=== PATIENT | male | born 1975 | race Caucasian/White ===

== ENCOUNTER 2020-11-10 20:04 | Emergency (ER) | payer MEDICAID, SELFPAY ==
--- NOTE | ~2020-11-10 | CT_ITS ---
EXAMINATION: CT ABDOMEN AND PELVIS WITHOUT CONTRAST CLINICAL INFORMATION: Lower abdominal pain. COMPARISON: CT abdomen 11/13/2017. TECHNIQUE: Multidetector volumetric imaging was performed from the superior aspect of the liver through the pubic symphysis. Sagittal and coronal reformatted images were obtained on the technologist's workstation. This CT examination was performed using dose optimization techniques as appropriate, variously including the following: *Automated exposure control. *Adjustment of mA and/or kV according to patient size (this includes techniques or standardized protocols for targeted exams where dose is matched to indication/reason for exam; i.e. extremities or head). *Use of iterative reconstruction technique. DLP: 600 mGy-cm FINDINGS: LUNG BASES: The visualized lung bases are unremarkable. LIVER, GALLBLADDER, AND BILIARY TREE: No focal lesion. No intrahepatic biliary duct dilatation. Gallbladder appears unremarkable. The CBD is not dilated. PANCREAS: Unremarkable. No inflammatory changes. SPLEEN: Unremarkable. ADRENAL GLANDS: Unremarkable. KIDNEYS AND URETERS: No renal or ureteral calculi. No hydronephrosis. No suspicious lesions. No perinephric stranding. BLADDER: Unremarkable. GASTROINTESTINAL TRACT: The small and large bowel are unremarkable. Small sigmoid diverticuli. No acute inflammatory changes. The appendix is unremarkable. No free fluid or free air. ABDOMINAL WALL: No significant hernia is appreciated. LYMPH NODES: No lymphadenopathy seen. VASCULAR: Unremarkable. PELVIC VISCERA: Unremarkable. OSSEOUS STRUCTURES: Multilevel spondylosis in the visualized thoracic and lumbar spine. The most prominent changes of clotrilw-ep-[id number] disc degeneration are seen at L4-L5, L5-S1, with vacuum phenomenon in the discs. CT/CT abdomen pelvis wo con IMPRESSION: 1. No acute findings identified in the abdomen or pelvis. 2. Lumbar spondylosis as above.
[2020-11-10 20:08] VITALS: BP 132/79; PULSE 111; RESP 18; TEMP 37.2; O2SAT 96; BMI 27.9
[2020-11-10 20:46] LABS: MANUAL DIFF FLAG NO
[2020-11-10 20:49] LABS: Basophils Percent Auto 0.1 % (0-2); Hematocrit 44.4 % (42-52); Hemoglobin 15.7 g/dl (14.0-18.0); Imm Gran Abs Auto 0.05 X10*3/uL (0.00-0.03); Imm Gran Pct Auto 0.3 % (0.0-0.4); Lymphocytes Percent Auto 13.7 % (20-40); Mean Corpuscular HGB Conc 35.4 g/dl (31.0-36.0); Mean Corpuscular Hemoglobin 32.4 pg (27.0-33.0); Mean Corpuscular Volume 91.7 fL (80-98); Mean Platelet Volume 10.6 fL (9.4-12.4); Monocytes Absolute Auto 1.2 X10*3/uL (0.1-1.2); Monocytes Percent Auto 8.1 % (2-11); Neutrophils Absolute Auto 11.6 X10*3/uL (2.0-8.3); Neutrophils Percent Auto 77.8 % (45-73); Platelet Count 257 X10*3/uL (160-400); Red Blood Count 4.84 X10*6/uL (4.60-5.80); Red Cell Distribution Width 12.2 % (11.0-16.0); White Blood Count 14.9 X10*3/uL (4.8-10.8)
--- NOTE | 2020-11-10 20:52 | ED_ITS ---
HPI - General Adult General Chief complaint: General Medical Stated complaint: Vomiting Time Seen by Provider: 11/10/20 20:50 Source: patient Mode of arrival: ambulatory Limitations: no limitations History of Present Illness HPI narrative: 45-year-old male walked in with vomiting since last night, vomiting has been constant since yesterday, last vomiting was 2 hours ago, patient now is complaining of sore throat, abdominal soreness from vomiting. Patient had similar presentation in the past. Related Data Allergies Allergy/AdvReac Type Severity Reaction Status Date / Time No Known Allergies Allergy Unverified 04/18/20 15:22 Review of Systems Review of Systems: All other systems are reviewed and are negative Constitutional: Reports as per HPI and Reports no additional constitutional complaints Eyes: Reports as per HPI and Reports no additional eye complaints Reports system reviewed and no additional complaints, except as documented Cardiovascular: Reports as per HPI and Reports no additional cardiovascular complaints Respiratory: Reports as per HPI and Reports no additional respiratory complaints Gastrointestinal: Reports as per HPI and Reports no additional gastrointestinal complaints Genitourinary: Reports no additional female genitourinary complaints Musculoskeletal: Reports no additional musculoskeletal complaints Skin/Breast: Reports system reviewed and no additional complaints, except as docu Psychiatric: Reports no additional psychiatric complaints Endocrine: Reports no additional endocrine complaints Hematologic/Lymphatic: Reports no additional hematologic/lymphatic complaints Allergic/Immunologic: Reports no additional allergic/immunologic complaints Reports system reviewed and no additional complaints, except as documented and Reports Abnormal speech present [facility] Past Medical History Medical History (Updated 11/10/20 @ 22:40 by Yashira Murcia MD) No active medical problems Social History Social History Advance Directives: No Advance Directives Information Provided: No Physical Exam Vital Signs: Vital Signs: Last Vital Signs Temp 99.0 F 11/10/20 20:08 Pulse 111 H 11/10/20 20:08 Resp 18 11/10/20 20:08 BP 132/79 11/10/20 20:08 Pulse Ox 96 11/10/20 20:08 Body Mass Index 27.9 Vital signs have been reviewed as appeared to be correct. Blood pressure normal. Heart rate normal. Respiration rate normal. Temperature normal. Oxygen saturation normal. Appearance: Alert. Oriented X3. No acute distress. Head: Normal external exam. Normocephalic. Atraumatic. No Dalton signs noted. No raccoon eyes noted Eyes: PERRLA. EOMI. Conjunctiva and sclera normal. Eyelids normal. ENT: TM's Normal. Pharynx normal. Uvula midline. Moist mucous membranes. No trismus noted. No drooling noted. No muffled voice noted. Neck: Normal inspection. Neck supple. FROM. No adenopathy. Thyroid Normal. No meningeal signs. No neck mass noted. CVS: Normal heart rate and rhythm. Heart sound normal. No murmurs noted. Pulses normal throughout. Respiratory: No respiratory distress. Painless inspiration. Breath sounds normal. No wheezes/rales/rhonchi noted. Chest nontender. No accessory muscle usage noted or decreased air movement noted. Abdomen: Soft, mild epigastric tenderness no rebound, no guarding.. Bowel sounds normal in all 4 quadrants. No distention noted. No organomegaly noted. No visible injury noted. Back: No CVA tenderness. Full range of motion noted. Skin: Skin warm and dry. Normal skin color. Normal skin turgor. No rashes/lesions/lacerations noted. Extremities: No lower extremity edema. Extremities exhibit normal range of motion. Extremities nontender. Neuro: Oriented X 3. No motor deficit. No sensory deficit. Reflexes normal. Course Course Course Narrative: 45-year-old male came in with vomiting x1 day complaining of abdominal pain. Patient now vital signs stable, no vomiting for the past 3 hours, able to tolerate p.o. intake in the emergency department. CT of the abdomen pelvis showed no acute pathology. Will discharge the patient with prescription of Zofran/Prilosec and follow up with PCP. Medical Decision Making Lab Data Lab results reviewed: Yes I reviewed the patient's lab results. Result diagrams: 11/10/20 20:40 11/10/20 20:40 Labs: Lab Results 11/10/20 11/10/20 11/10/20 Range/Units 20:40 20:40 20:40 WBC 14.9 H (4.8-10.8) X10*3/uL RBC 4.84 (4.60-5.80) X10*6/uL Hgb 15.7 (14.0-18.0) g/dl Hct 44.4 (42-52) % MCV 91.7 (80-98) fL MCH 32.4 (27.0-33.0) pg MCHC 35.4 (31.0-36.0) g/dl RDW 12.2 (11.0-16.0) % Plt Count 257 (160-400) X10*3/uL MPV 10.6 (9.4-12.4) fL Immature Gran % (Auto) 0.3 (0.0-0.4) % Neut % (Auto) 77.8 H (45-73) % Lymph % (Auto) 13.7 L (20-40) % [place] % (Auto) 8.1 (2-11) % Eos % (Auto) 0.0 (0-4) % Baso % (Auto) 0.1 (0-2) % Lymph # (Auto) 2.0 (1.2-4.9) X10*3/uL [place] # (Auto) 1.2 (0.1-1.2) X10*3/uL Eos # (Auto) 0.0 (0.0-0.4) X10*3/uL Baso # (Auto) 0.0 (0.0-0.2) X10*3/uL Abs Immat Gran (auto) 0.05 H (0.00-0.03) X10*3/uL Absolute Neuts (auto) 11.6 H (2.0-8.3) X10*3/uL Absolute Nucleated RBC 0.000 (0.0-0.012) X10*3/uL Nucleated RBC % (auto) 0.0 (0.0-0.2) /100WBC Hold Blue Top SEE NOTE Sodium 140 (135-145) mmol/L Potassium 3.2 L (3.3-5.1) mmol/L Chloride 95 L (96-108) mmol/L Carbon Dioxide 29 (22-29) mmol/L Anion Gap 19 (12-20) BUN 24 H (9-16) mg/dL Creatinine 1.15 (0.5-1.4) mg/dL Estim Creat Clear Calc 97.3 Estimated GFR > 60 Random Glucose 148 H (60-115) mg/dL Calcium 9.1 (8.4-10.2) mg/dL Total Bilirubin 0.8 (0.0-1.0) mg/dL AST 20 (5-37) U/L ALT 27 (0-40) U/L Alkaline Phosphatase 85 (39-117) U/L Total Protein 8.6 H (6.5-8.0) g/dL Albumin 5.0 (3.5-5.0) g/dL Imaging Data CT scan - abdomen: Radiologist's impression: 1. No acute findings identified in the abdomen or pelvis. 2. Lumbar spondylosis as above. Discharge Plan Discharge Clinical Impression: Abdominal pain Patient Disposition: Home, Self-Care Instructions: Abdominal Pain (ED) Referrals: Physician,None [Primary Care Provider] - 2 days
[2020-11-10 21:13] LABS: Alanine Aminotransferase 27 U/L (0-40); Alkaline Phosphatase 85 U/L (39-117); Anion Gap 19 (12-20); Aspartate Amino Transferase 20 U/L (5-37); Bilirubin Total 0.8 mg/dL (0.0-1.0); Blood Urea Nitrogen 24 mg/dL (9-16); Calcium 9.1 mg/dL (8.4-10.2); Carbon Dioxide 29 mmol/L (22-29); Chloride 95 mmol/L (96-108); Creatinine Clr Calc Pharmacy 97.3; Estimated Glomerular Filt Rate > 60; Glucose Random 148 mg/dL (60-115); Potassium 3.2 mmol/L (3.3-5.1); Sodium 140 mmol/L (135-145); Total Protein 8.6 g/dL (6.5-8.0)
[2020-11-10] MEDS: 0.9 % Sodium Chloride 1,000 ML 999 ML IVCONT (22:00)
[2020-11-10] MEDS: Potassium Chloride Packet 20 MEQ PACKET 40 MEQ PO (23:23)
[2020-11-10 23:24] VITALS: BP 135/79; PULSE 82; RESP 15; O2SAT 97
== END 2020-11-10 23:37 | disposition home or self-care (01) ==
PROVIDERS: Emergency Provider Emergency Medicine
DX: R10.13 Epigastric pain (principal); R11.10 Vomiting, unspecified; J02.9 Acute pharyngitis, unspecified; F12.90 Cannabis use, unspecified, uncomplicated
CPT/HCPCS: 36415; 74176; 80053; 85025; 96360; 99284

== ENCOUNTER 2020-11-12 11:38 | Emergency (ER) | payer MEDICAID, SELFPAY ==
--- NOTE | ~2020-11-12 | CT_ITS ---
EXAMINATION: CT ABDOMEN AND PELVIS WITH CONTRAST CLINICAL INFORMATION: 45-year-old male with diffuse abdominal pain COMPARISON: CT abdomen pelvis 11/10/2020 TECHNIQUE: Multidetector volumetric images were obtained from the superior aspect of the liver through the pubic symphysis following administration 85 mL of Omnipaque 350 intravenous contrast. Sagittal and coronal reformatted images were obtained on the technologist's workstation. Oral contrast: No This CT examination was performed using dose optimization techniques as appropriate, variously including the following: *Automated exposure control *Adjustment of mA and/or kV according to patient size (this includes techniques or standardized protocols for targeted exams where dose is matched to indication/reason for exam; i.e. extremities or head) *Use of iterative reconstruction technique DLP: 593 mGy-cm FINDINGS: Visualized lung bases are well aerated. The liver demonstrates normal size, contour and attenuation. Subcentimeter hypodensity of the right hepatic lobe is too small to accurately characterize. The gallbladder is normal in appearance. The pancreas, spleen and adrenal glands are unremarkable. Symmetrically enhancing kidneys. There is no hydronephrosis bilaterally. Normal caliber loops of small and large bowel. Normal appendix. Nonaneurysmal abdominal aorta. Retroaortic left renal vein. No retroperitoneal lymphadenopathy. The bladder is normal in appearance. The prostate gland is not enlarged. No gross free pelvic fluid. No inguinal lymphadenopathy. Mild diffuse degenerative changes of the spine. CT/CT abdomen pelvis w con IMPRESSION: Stable examination demonstrating no CT evidence for acute abnormality within the abdomen or pelvis.
--- NOTE | ~2020-11-12 | US_ITS ---
EXAMINATION: US ABDOMEN LIMITED CLINICAL INFORMATION: Right upper quadrant pain. Mildly elevated LFTs.. COMPARISON: CT abdomen pelvis earlier today and abdominal ultrasound 09/28/2015 TECHNIQUE: Real-time imaging of the right upper quadrant abdominal viscera. FINDINGS: PANCREAS: Visualized portions of pancreas are normal in appearance. LIVER: Normal. The liver is normal in size. The liver contour is normal. Parenchymal echogenicity is normal. No focal hepatic lesion. There is no intrahepatic biliary duct dilatation seen. GALLBLADDER: The gallbladder is physiologically distended without evidence of stones, sludge, polyps, wall thickening or pericholecystic fluid. Sonographic Antunez's sign is positive. COMMON BILE DUCT: Normal in caliber measuring 0.3 cm in diameter. RIGHT KIDNEY: Normal. No hydronephrosis. No renal calculi or focal parenchymal lesions. The kidney measures 11.9 cm in maximum dimension. FREE FLUID: None. US/US abdomen limited IMPRESSION: Sonographic imaging of the gallbladder is normal although the technologist does report a positive sonographic Antunez's sign. Clinical correlation recommended.
[2020-11-12 11:59] VITALS: BP 131/83; PULSE 80; RESP 16; TEMP 36.1; O2SAT 98; BMI 27.8
[2020-11-12 15:57] LABS: MANUAL DIFF FLAG NO
[2020-11-12 16:01] LABS: Basophils Percent Auto 0.2 % (0-2); Eosinophils Percent Auto 0.1 % (0-4); Hematocrit 46.7 % (42-52); Hemoglobin 15.9 g/dl (14.0-18.0); Imm Gran Abs Auto 0.04 X10*3/uL (0.00-0.03); Imm Gran Pct Auto 0.3 % (0.0-0.4); Lymphocytes Absolute Auto 3.3 X10*3/uL (1.2-4.9); Lymphocytes Percent Auto 25.2 % (20-40); Mean Corpuscular Hemoglobin 31.7 pg (27.0-33.0); Mean Platelet Volume 10.2 fL (9.4-12.4); Monocytes Absolute Auto 1.2 X10*3/uL (0.1-1.2); Neutrophils Absolute Auto 8.7 X10*3/uL (2.0-8.3); Neutrophils Percent Auto 65.2 % (45-73); Platelet Count 295 X10*3/uL (160-400); Red Blood Count 5.02 X10*6/uL (4.60-5.80); Red Cell Distribution Width 12.1 % (11.0-16.0); White Blood Count 13.2 X10*3/uL (4.8-10.8)
[2020-11-12 16:25] LABS: Anion Gap 14 (12-20); Blood Urea Nitrogen 21 mg/dL (9-16); Calcium 9.4 mg/dL (8.4-10.2); Carbon Dioxide 35 mmol/L (22-29); Chloride 93 mmol/L (96-108); Creatinine Clr Calc Pharmacy 96.6; Estimated Glomerular Filt Rate > 60; Glucose Random 116 mg/dL (60-115); Potassium 3.2 mmol/L (3.3-5.1); Sodium 139 mmol/L (135-145)
--- NOTE | 2020-11-12 16:53 | ED.ABDPAIN ---
HPI - Abdominal Pain General Chief Complaint: Abdominal Pain Stated Complaint: abd pain Time Seen by Provider: 11/12/20 16:41 Source: patient Mode of arrival: ambulatory Limitations: no limitations History of Present Illness HPI narrative: Patient comes emergency room complaining of diffuse abdominal pain. Patient states it has been 3-4 days. Patient states he has had chronic issues with abdominal pain in the past. Patient is supposed to follow up with Gastroenterology, however he was waiting for a referral from his PCP retired, now patient does have a PCP or referral to Gastroenterology. Patient states he was seen here on November 10 complaining of similar complaints. Patient states after he was discharged home, he was doing well, 2 days later he started vomiting again. Patient denies diarrhea, states he has not moved his bowels in 3 days. Patient denies flank pain, no urinary symptoms. Patient states that he uses marijuana almost every day, but stopped 3 days ago due to the vomiting and abdominal discomfort. Patient denies drinking alcohol MD elicited complaint: abdominal pain Related Data Previous Rx's Medication Instructions Recorded omeprazole magnesium [Prilosec OTC] 20 mg PO BID #30 tab 11/10/20 ondansetron HCl [Zofran] 4 mg PO Q8H PRN #7 tab 11/10/20 doxylamine succinate [Unisom 25 mg PO BEDTIME PRN #5 tab 11/12/20 (doxylamine)] hyoscyamine sulfate 0.25 mg PO QID PRN #10 tab 11/12/20 Allergies Allergy/AdvReac Type Severity Reaction Status Date / Time No Known Allergies Allergy Unverified 04/18/20 15:22 Review of Systems Review of Systems Constitutional : No Weight loss, No Fever, No Chills, No Night Sweats, No Fatigue, No Malaise ENT/Mouth : No Hearing loss, No Ear Pain, No Nasal Congestion, No Sinus Pain, No Hoarseness, No sore throat, No Rhinorrhea, No Swallowing Difficulty Eyes: No Eye Pain, No Swelling, No Redness, No Foreign Body, No Discharge, No Vision Changes Cardiovascular : No Chest Pain, No SOB, No Dyspnea on Exertion, No Orthopnea, No Edema, No Palpitations Respiratory : No Cough, No Sputum, No Wheezing, No Smoke Exposure, No Dyspnea Gastrointestinal : Complaining of nausea and vomiting, denies hematemesis, No Diarrhea, 3 days of Constipation, diffuse abdominal Pain, No Hematochezia, No Melena Genitourinary : no irregular bleeding, No Dysuria, No Urinary Frequency, No Hematuria, No Urinary Incontinence, No Urgency, No Flank Pain, No Urinary Flow Changes, No Hesitancy Musculoskeletal : No joint pain, No Myalgias, No Joint Swelling Skin : No Skin Lesions, No rash Neuro : No Weakness, No Numbness, No Paresthesias, No Loss of Consciousness, No Dizziness, No Headache Psych : No Anxiety/Panic, No Depression, No SI/HI/AH/VH, No Social Issues, Heme/Lymph: No Bruising, No Bleeding,No Lymphadenopathy Endocrine : No Polyuria, No Polydipsia, No Temperature Intolerance Physical Exam Vital Signs: Vital Signs: Last Vital Signs Temp 97 F 11/12/20 11:59 Pulse 80 11/12/20 11:59 Resp 16 11/12/20 11:59 BP 131/83 11/12/20 11:59 Pulse Ox 98 11/12/20 11:59 Body Mass Index 27.8 Course Course Course Narrative: I discussed the labs and imaging with Dr. Melgoza, at this time, acute cholecystitis is not suspected, hospitalization not recommended. Patient needs to follow-up with gastroenterology. MDM - Abdominal Pain Lab Data Result diagrams: 11/12/20 15:48 11/12/20 15:48 Labs: Lab Results 11/12/20 11/12/20 Range/Units 15:48 15:48 WBC 13.2 H (4.8-10.8) X10*3/uL RBC 5.02 (4.60-5.80) X10*6/uL Hgb 15.9 (14.0-18.0) g/dl Hct 46.7 (42-52) % MCV 93.0 (80-98) fL MCH 31.7 (27.0-33.0) pg MCHC 34.0 (31.0-36.0) g/dl RDW 12.1 (11.0-16.0) % Plt Count 295 (160-400) X10*3/uL MPV 10.2 (9.4-12.4) fL Immature Gran % (Auto) 0.3 (0.0-0.4) % Neut % (Auto) 65.2 (45-73) % Lymph % (Auto) 25.2 (20-40) % [place] % (Auto) 9.0 (2-11) % Eos % (Auto) 0.1 (0-4) % Baso % (Auto) 0.2 (0-2) % Lymph # (Auto) 3.3 (1.2-4.9) X10*3/uL [place] # (Auto) 1.2 (0.1-1.2) X10*3/uL Eos # (Auto) 0.0 (0.0-0.4) X10*3/uL Baso # (Auto) 0.0 (0.0-0.2) X10*3/uL Abs Immat Gran (auto) 0.04 H (0.00-0.03) X10*3/uL Absolute Neuts (auto) 8.7 H (2.0-8.3) X10*3/uL Absolute Nucleated RBC 0.000 (0.0-0.012) X10*3/uL Nucleated RBC % (auto) 0.0 (0.0-0.2) /100WBC Sodium 139 (135-145) mmol/L Potassium 3.2 L (3.3-5.1) mmol/L Chloride 93 L (96-108) mmol/L Carbon Dioxide 35 H (22-29) mmol/L Anion Gap 14 (12-20) BUN 21 H (9-16) mg/dL Creatinine 1.07 (0.5-1.4) mg/dL Estim Creat Clear Calc 96.6 Estimated GFR > 60 Random Glucose 116 H (60-115) mg/dL Calcium 9.4 (8.4-10.2) mg/dL Total Bilirubin 1.4 H (0.0-1.0) mg/dL Direct Bilirubin 0.4 (0.0-0.5) mg/dL AST 25 (5-37) U/L ALT 25 (0-40) U/L Alkaline Phosphatase 83 (39-117) U/L Total Protein 8.4 H (6.5-8.0) g/dL Albumin 5.0 (3.5-5.0) g/dL Lipase 50 (8-78) U/L Imaging Data Abdominal ultrasound: Radiologist's impression: US ABDOMEN LIMITED CLINICAL INFORMATION: Right upper quadrant pain. Mildly elevated LFTs.. COMPARISON: CT abdomen pelvis earlier today and abdominal ultrasound 09/28/2015 TECHNIQUE: Real-time imaging of the right upper quadrant abdominal viscera. FINDINGS: PANCREAS: Visualized portions of pancreas are normal in appearance. LIVER: Normal. The liver is normal in size. The liver contour is normal. Parenchymal echogenicity is normal. No focal hepatic lesion. There is no intrahepatic biliary duct dilatation seen. GALLBLADDER: The gallbladder is physiologically distended without evidence of stones, sludge, polyps, wall thickening or pericholecystic fluid. Sonographic Antunez's sign is positive. COMMON BILE DUCT: Normal in caliber measuring 0.3 cm in diameter. RIGHT KIDNEY: Normal. No hydronephrosis. No renal calculi or focal parenchymal lesions. The kidney measures 11.9 cm in maximum dimension. FREE FLUID: None. US/US abdomen limited IMPRESSION: Sonographic imaging of the gallbladder is normal although the technologist does report a positive sonographic Antunez's sign. Clinical correlation recommended. CT scan - abdomen: Radiologist's impression: [address] [id number] Scan ReportSigned Patient: Janet Torres#: [id number]: 1975Acct:[id number]/Sex: 45 / MADM Date: 11/12/20Loc: [address] Dr: Ordering Physician: ANTHONY MYRICK MD Date of Service: 11/12/20 Procedure(s): CT abdomen pelvis w con Accession Number(s): [id number] cc: ANTHONY MYRICK MD~ EXAMINATION: CT ABDOMEN AND PELVIS WITH CONTRAST CLINICAL INFORMATION: 45-year-old male with diffuse abdominal pain COMPARISON: CT abdomen pelvis 11/10/2020 TECHNIQUE: Multidetector volumetric images were obtained from the superior aspect of the liver through the pubic symphysis following administration 85 mL of Omnipaque 350 intravenous contrast. Sagittal and coronal reformatted images were obtained on the technologist's workstation. Oral contrast: No This CT examination was performed using dose optimization techniques as appropriate, variously including the following: *Automated exposure control *Adjustment of mA and/or kV according to patient size (this includes techniques or standardized protocols for targeted exams where dose is matched to indication/reason for exam; i.e. extremities or head) *Use of iterative reconstruction technique DLP: 593 mGy-cm FINDINGS: Visualized lung bases are well aerated. The liver demonstrates normal size, contour and attenuation. Subcentimeter hypodensity of the right hepatic lobe is too small to accurately characterize. The gallbladder is normal in appearance. The pancreas, spleen and adrenal glands are unremarkable. Symmetrically enhancing kidneys. There is no hydronephrosis bilaterally. Normal caliber loops of small and large bowel. Normal appendix. Nonaneurysmal abdominal aorta. Retroaortic left renal vein. No retroperitoneal lymphadenopathy. The bladder is normal in appearance. The prostate gland is not enlarged. No gross free pelvic fluid. No inguinal lymphadenopathy. Mild diffuse degenerative changes of the spine. CT/CT abdomen pelvis w con IMPRESSION: Stable examination demonstrating no CT evidence for acute abnormality within the abdomen or pelvis. Discharge Plan Discharge Clinical Impression: Abdominal pain Qualifiers: Abdominal location: generalized Qualified Code(s): R10.84 - Generalized abdominal pain Patient Disposition: Home, Self-Care Instructions: Abdominal Pain (ED) Additional Instructions: Please follow-up with your primary care physician tomorrow. If you have any worsening or new symptoms, please return to the emergency room or call 911 Prescriptions: New hyoscyamine sulfate 0.125 mg tablet 0.25 mg PO QID PRN (Reason: dyspepsia) Qty: 10 RF: 0 Unisom (doxylamine) 25 mg tablet 25 mg PO BEDTIME PRN (Reason: sleep) Qty: 5 RF: 0 No Action ondansetron HCl [Zofran] 4 mg tablet 4 mg PO Q8H PRN (Reason: nausea and vomiting) Qty: 7 RF: 0 omeprazole magnesium [Prilosec OTC] 20 mg tablet,delayed release (DR/EC) 20 mg PO BID Qty: 30 RF: 0 Referrals: Mic Garcia MD [Physician] - 2 days PMF Past Medical History Medical History (Updated 11/12/20 @ 20:21 by Anthony Myrick MD) No active medical problems Social History Social History Advance Directives: No Advance Directives Information Provided: No
[2020-11-12 17:25] LABS: Alanine Aminotransferase 25 U/L (0-40); Alkaline Phosphatase 83 U/L (39-117); Aspartate Amino Transferase 25 U/L (5-37); Bilirubin Direct 0.4 mg/dL (0.0-0.5); Bilirubin Total 1.4 mg/dL (0.0-1.0); Lipase 50 U/L (8-78); Total Protein 8.4 g/dL (6.5-8.0)
[2020-11-12] MEDS: iohexoL 350 MG/ML 100 ML INFUS..BTL IV (17:32)
[2020-11-12] MEDS: ondansetron HCL 4 MG/2 ML VIAL IVPUSH (17:46)
[2020-11-12] MEDS: Morphine Sulfate 2 MG/ML CARTRIDGE IVPUSH (17:46)
== END 2020-11-12 20:40 | disposition home or self-care (01) ==
PROVIDERS: Emergency Provider Emergency Medicine
DX: R10.84 Generalized abdominal pain (principal); F12.90 Cannabis use, unspecified, uncomplicated
CPT/HCPCS: 36415; 74177; 76705; 80048; 80076; 83690; 85025; 96374; 96375; 99283; 99284; J2270; J2405; Q9967

== ENCOUNTER 2020-11-16 16:38 | Emergency (ER) | payer MEDICAID, SELFPAY ==
[2020-11-16 16:42] VITALS: BP 144/86; PULSE 114; RESP 18; TEMP 37.2; O2SAT 100; BMI 27.8
--- NOTE | 2020-11-16 18:47 | ED.ABDPAIN ---
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 Pain does get worse after eating sometimes no acid reflux lately on Prilosec MD elicited complaint: abdominal pain Pertinent past history: gastritis Onset (ago): year(s) Pain Consistency: intermittent Location: epigastric Related Data Previous Rx's Medication Instructions Recorded omeprazole magnesium [Prilosec OTC] 20 mg PO BID #30 tab 11/10/20 ondansetron HCl [Zofran] 4 mg PO Q8H PRN #7 tab 11/10/20 doxylamine succinate [Unisom 25 mg PO BEDTIME PRN #5 tab 11/12/20 (doxylamine)] hyoscyamine sulfate 0.25 mg PO QID PRN #10 tab 11/12/20 Allergies Allergy/AdvReac Type Severity Reaction Status Date / Time No Known Allergies Allergy Unverified 04/18/20 15:22 Review of Systems Review of Systems Constitutional : No Weight loss, No Fever, No Chills ENT/Mouth : No sore throat, No Rhinorrhea Eyes: No Eye Pain, No Swelling Cardiovascular : No Chest Pain, no palpitations Respiratory : No Cough, No Sputum, no shortness of breath Gastrointestinal : + Nausea, + Vomiting, No Diarrhea, ++abdominal Pain, no black stools Genitourinary : No Dysuria, No Urinary Frequency Musculoskeletal : No joint pain, No Myalgias, No Joint Swelling Skin : No Skin Lesions, No rash Neuro : No Weakness, No Numbness, No Dizziness, No Headache Psych : No Anxiety/Panic, No Depression Heme/Lymph: No Bruising, No Lymphadenopathy Endocrine : No Polyuria, No Polydipsia All other systems reviewed and are negative Physical Exam Vital Signs: Vital Signs: Last Vital Signs Temp 98.9 F 11/16/20 16:42 Pulse 114 H 11/16/20 16:42 Resp 18 11/16/20 16:42 BP 144/86 H 11/16/20 16:42 Pulse Ox 100 11/16/20 16:42 Body Mass Index 27.8 Appearance: Alert. Oriented X3. No acute distress. Eyes: Pupils equal, round and reactive to light. ENT: Pharynx normal. Neck: Normal inspection. Neck supple. CVS: Normal heart rate and rhythm. Pulses normal. Respiratory: No respiratory distress. Breath sounds normal. Abdomen: Soft , epigastric tenderness + no rebound tenderness or guarding Bowel sounds are present, no mass palpable, no CVA tenderness Skin: Skin warm and dry. Normal skin color. Normal skin turgor. Extremities: No lower extremity edema. Neuro: Oriented X 3. No motor deficit. No sensory deficit. MDM - Abdominal Pain MDM Narrative Medical decision making narrative: Patient with upper abdominal pain with history of cannabis use which is going on for years patient feels better after a hot shower likely cannabis induced abdominal pain Discharge Plan Discharge Prescriptions: No Action hyoscyamine sulfate 0.125 mg tablet 0.25 mg PO QID PRN (Reason: dyspepsia) Qty: 10 RF: 0 Unisom (doxylamine) 25 mg tablet 25 mg PO BEDTIME PRN (Reason: sleep) Qty: 5 RF: 0 ondansetron HCl [Zofran] 4 mg tablet 4 mg PO Q8H PRN (Reason: nausea and vomiting) Qty: 7 RF: 0 omeprazole magnesium [Prilosec OTC] 20 mg tablet,delayed release (DR/EC) 20 mg PO BID Qty: 30 RF: 0 PMFSH Past Medical History Medical History No active medical problems Social History Social History Advance Directives: No Advance Directives Information Provided: No
[2020-11-16] MEDS: LORazepam 1 MG TABLET 2 MG PO (19:14)
[2020-11-16] MEDS: Dicyclomine HCl 10 MG CAPSULE 20 MG PO (19:14)
== END 2020-11-16 20:22 | disposition home or self-care (01) ==
PROVIDERS: Emergency Provider Internal Medicine; PCP Family Medicine
DX: K29.50 Unspecified chronic gastritis without bleeding (principal); F12.188 Cannabis abuse with other cannabis-induced disorder
CPT/HCPCS: 99283; 99284

== ENCOUNTER → 2020-12-10 13:11 | Outpatient (BNVA) | payer MEDICAID, SELFPAY | PROVIDERS: Visit Provider Physician Assistant ==

== ENCOUNTER 2020-12-26 07:07 | Day surgery (SDC) | payer MEDICAID, SELFPAY ==
--- NOTE | 2020-12-24 13:15 | HO.ANESPROP2 ---
Documented by User: Shyann Ortega 12/24/20 13:15 HPI - Anesthesia Eval Consult details Narrative: 45yo M for Upper Endoscopy PMFSH Active Problems Active Problems: All Active Problems (Updated 12/18/20 @ 13:01 by Allie Santiago PA-C) Cannabis abuse (Acute) Nausea & vomiting (Acute) Past Medical History Medical History Cannabis abuse Nausea & vomiting No active medical problems Social History Social History Household Members: Family Alcohol intake: never Substance Use Type: Marijuana Advance Directives: No Advance Directives Information Provided: Yes Current occupational status: unemployed Meds Allergies Allergy/AdvReac Type Severity Reaction Status Date / Time No Known Allergies Allergy Verified 12/26/20 07:49 Home Medications Medication Instructions Recorded Confirmed Last Taken Type ondansetron HCl 1 tab PO Q8H PRN 12/23/20 12/23/20 Unknown History Exam Exam Date and Time: December 24, 20201314 Assessment and Plan Assessment Anesthesia Assessment: Chart Reviewed Documented by User: Angelika Porter 12/26/20 07:55 PMFSH Past Medical History Medical History Cannabis abuse Nausea & vomiting No active medical problems Social History Social History Household Members: Family Alcohol intake: never Substance Use Type: Marijuana Advance Directives: No Advance Directives Information Provided: Yes Current occupational status: unemployed Meds Allergies Allergy/AdvReac Type Severity Reaction Status Date / Time No Known Allergies Allergy Verified 12/26/20 07:49 Home Medications Medication Instructions Recorded Confirmed Last Taken Type ondansetron HCl 1 tab PO Q8H PRN 12/23/20 12/23/20 Unknown History Exam Airway Mallampati Class: II TM Dist: >3cm Neck ROM: Full
--- NOTE | 2020-12-26 07:48 | P.OP_ITS ---
Operative Note Operative Note Date of Service: 12/26/20 Narrative: Pre-op diagnosis: Abdominal pain, nausea and vomiting Post-op diagnosis: other (GERD, gastritis, duodenitis, duodenal nodules) Procedure: FLEXIBLE TRANSORAL UPPER GASTROINTESTINAL ENDOSCOPY WITH BIOPSIES Consent: Indications for the procedure and potential complications of bleeding, perforation, reaction to medications and missed diagnosis were discussed with the patient and informed consent was obtained. Instrument: Olympus GIF H 190 mid size upper endoscope Monitoring: Vital signs and clinical assessment, continuous EKG monitoring, Pulse oximetry, Carbon Dioxide monitoring and blood pressure monitoring were done throughout the procedure. Procedure: The patient was placed in the left lateral decubitis position and pre-procedure medications were administered and a bite block was placed. The endoscope was inserted into the mouth and advanced under direct vision to the third part of duodenum. A careful inspection was made as the upper endoscope was withdrawn including a retroflexed examination of the proximal stomach; Findings and interventions are described below. Findings: Larynx: Normal Esophagus: GE junction at 40 cms. Irregular Z line with 1 cms tongue of suspected Ravi's - biopsied. Stomach: Mild gastric antral erythema. Biopsies were obtained. Grade 2 flap valve on retroflexed examination of the cardia. Duodenum: Duodenitis in the bulb with multiple 8-10 mm benign appearing nodules - biopsied. Normal descending duodenum - biopsied to check for celiac sprue. Intervention: Biopsies as noted above Impression and Post Procedure Diagnosis: Endoscopy Findings: ESOPHAGUS: Irregular Z line with 1 cms tongue of suspected Ravi's - biopsied. STOMACH: Gastritis. DUODENUM: Nodular duodenitis in the bulb. Plan: Await pathology results Patient to schedule a FU appointment in the GI Clinic with JENNIFFER Perez. Above findings were reviewed with the patient and Duodenitis and Gastritis handouts were given in the discharge area Surgeon: Lj Thayer MD Anesthesia: MAC (Va Trujillo CRNA) Was an [employer] used for this Procedure?: Yes [employer]: Rajinder Garcia Estimated blood loss (mL): 0 Pathology: other (A- SMALL BOWEL BXS R/O CELIAC SPRU B- DUODENAL NODULE C- GASTRIC ANTRUM BXS R/O H. PYLORI D- DISTAL ESOPHAGUS BXS R/O RAVI'S) Condition: stable Disposition: PACU
--- NOTE | 2020-12-26 07:49 | MHC.SHP ---
Pre-Procedural Eval Section A The patient is an INPATIENT: No Changes since office visit: Yes Patient answered all questions; No Cold of Flu in the past 2 weeks, No New Medical Problems and No Changes in Medication The History & Physical has been completed within 30 days and I have reviewed it.: Yes Section B Chief Complaint: nausea Allergies: Allergies Allergy/AdvReac Type Severity Reaction Status Date / Time No Known Allergies Allergy Unverified 12/23/20 13:42 Exam Surgical H&P Exam: Normal: Heart, Normal: Lungs, Normal: Extremities and Normal: Abdomen Plan Diagnosis/Plan: Unchanged I have reviewed the history and physical and performed a pertinent physical examination on my patient. No changes have occurred unless specified.
[2020-12-26 07:50] VITALS: BP 104/55; PULSE 87; RESP 16; TEMP 36.2; O2SAT 97; BMI 27.8
[2020-12-26] MEDS: Lactated Ringers 1,000 ML 100 ML IVCONT (07:58)
[2020-12-26 08:45] VITALS: BP 84/41; PULSE 70; RESP 16; TEMP 37.1; O2SAT 96
[2020-12-26 09:00] VITALS: BP 87/48; PULSE 84; RESP 16; O2SAT 95
[2020-12-26 09:15] VITALS: BP 112/71; PULSE 77; RESP 16; TEMP 37.1; O2SAT 95
== END 2020-12-26 10:00 | disposition home or self-care (01) ==
PROVIDERS: PCP Family Medicine; Visit Provider Internal Medicine Gastroenterology
PROC: 0DJ08ZZ Inspection of Upper Intestinal Tract, Via Natural or Artificial Opening Endoscopic (ICD-10-PCS; CPT 43235; principal; 2020-12-26 08:10)
DX: K29.70 Gastritis, unspecified, without bleeding (principal); K29.80 Duodenitis without bleeding; K21.9 Gastro-esophageal reflux disease without esophagitis; K31.7 Polyp of stomach and duodenum; F12.10 Cannabis abuse, uncomplicated; Z79.899 Other long term (current) drug therapy; Z87.891 Personal history of nicotine dependence
CPT/HCPCS: 43239; 88305; 88342; J3010

== ENCOUNTER → 2021-01-28 08:32 | Outpatient (BNVA) | payer MEDICAID, SELFPAY | PROVIDERS: PCP Family Medicine; Visit Provider Physician Assistant ==

== ENCOUNTER 2021-01-31 20:33 | Emergency (ER) | payer MEDICAID, SELFPAY | END 2021-01-31 22:09 | disposition left against medical advice (07) | PROVIDERS: Emergency Provider Emergency Medicine | DX: R10.9 Unspecified abdominal pain (principal); R11.2 Nausea with vomiting, unspecified ==

== ENCOUNTER 2021-03-06 10:29 | Outpatient (REF) | payer MEDICAID, SELFPAY ==
--- NOTE | 2021-03-06 10:30 | EMG_ITS ---
Right median and ulnar motor and sensory studies were performed. Right radial sensory study was performed and paraspinal muscles were tested. IMPRESSION: 1. [id number] right median neuropathy across carpal tunnel. 2. Mild right ulnar neuropathy across cubital tunnel. MD FABRICIO Pimentel/LAURIE / [phone]
== END 2021-03-06 10:30 | disposition home or self-care (01) ==
LOC: HO.NEURO 10:29
PROVIDERS: PCP Family Medicine; Visit Provider Family Medicine
DX: G62.9 Polyneuropathy, unspecified (principal)
CPT/HCPCS: 95886; 95909

== ENCOUNTER → 2021-04-29 08:23 | Outpatient (BNVA) | payer MEDICAID, SELFPAY | PROVIDERS: PCP Family Medicine; Referring Provider Family Medicine; Visit Provider Physician Assistant ==

== ENCOUNTER 2023-07-01 19:16 | Inpatient (IN) | payer MEDICAID, SELFPAY ==
[2023-07-01 19:23] VITALS: BP 114/70; PULSE 121; RESP 22; TEMP 36.9; O2SAT 98; BMI 27.8
--- NOTE | 2023-07-01 19:25 | ED_ITS ---
[facility] - General Adult General Chief complaint: Nausea/Vomiting/Diarrhea Stated complaint: vomiting, cramping, dizzy Time Seen by Provider: 07/01/23 20:59 Source: patient Mode of arrival: ambulatory History of Present Illness HPI narrative: 47-year-old male without significant past medical history other than use of cannabis and presents with persistent nausea and vomiting since last and now states that he is having significant muscle cramping and is experiencing significant epigastric discomfort. He otherwise denies any diarrhea/fevers/chills. Related Data Home Medications Medication Instructions Recorded Confirmed ondansetron HCl 4 mg tablet 1 tab PO Q8H PRN nausea/vomiting 12/23/20 01/28/21 trazodone 100 mg tablet 100 mg PO BEDTIME PRN 01/28/21 01/28/21 Previous Rx's Medication Instructions Recorded omeprazole magnesium 20 mg 20 mg PO BID #30 tabs 11/10/20 tablet,delayed release (Prilosec OTC) dicyclomine 20 mg tablet 20 mg PO QID PRN abdominal pain 11/16/20 #20 tabs sucralfate 1 gram tablet 1 g PO TID #90 tabs 11/16/20 Allergies Allergy/AdvReac Type Severity Reaction Status Date / Time No Known Allergies Allergy Verified 12/26/20 07:49 Review of Systems 2 Review of Systems: Pertinent positives and negatives as stated in [facility] Past Medical History Source: nursing notes reviewed Medical History Cannabis abuse Nausea & vomiting No active medical problems Social History Social History Household Members: Family Alcohol intake: never Patient Tobacco Use Status: Former Tobacco user Tobacco use type: Cigarette Smoked in Last 30 Days: No Use of substances other than those prescribed or required for medical reasons: Yes Substance Use Type: Marijuana Substance Use Frequency: Daily Advance Directives: No Advance Directives Information Provided: No Current occupational status: unemployed Physical Exam ED Vital Signs: Vital Signs - 24 hr 07/01/23 19:23 07/01/23 21:34 07/01/23 21:39 Temperature 98.4 F Pulse Rate 121 H 117 H Respiratory Rate 22 H 19 Blood Pressure 114/70 107/64 Pulse Oximetry 98 100 Oxygen Delivery Method Room Air BMI result Body Mass Index 27.8 VITAL SIGNS: Reviewed. GENERAL: Well developed, well nourished, in no acute distress. HEAD: Normocephalic/atraumatic EYES: PERRLA, EOMI EARS: Ext canals without abnormality NOSE: Nares patent bilateral OROPHARYNX: no oral lesions noted, posterior pharynx clear NECK: Supple, no adenopathy LUNGS: Normal breath sounds. No adventitious sounds or accessory muscle use. SpO2<98> CARDIOVASCULAR: Regular rate and rhythm without noted murmurs ABDOMEN: Soft, diffusely tender on minimal palpation, non-distended with bowel sounds. MUSCULOSKELETAL: No tenderness, deformities, or effusions noted on gross inspection. EXTREMITIES: No cyanosis, clubbing or edema. SKIN: Inspection of the skin reveals no rashes NEUROLOGIC: Alert and oriented x 4. Strength and sensation to light touch were grossly intact x 4. Course Course Course Narrative: This is a rapid medical exam: Additional HPI, ROS, PE not included below will be deferred to primary provider. Patient is a 47-year-old male with history of cannabis use presenting to the ED with complaint of nausea and vomiting for one week. Denies diarrhea. Complains of abdominal cramping. Denies past medical history. Also reports several episodes of syncope since wednesday. Denies head strikes or loss of consciousness. Not anticoagulated. Reports chest pain earlier, denies pain now. Complains of pain to both sides of abdomen. States has not been able to tolerate any PO fluids. Plan: EKG, labs, UA Medications Administered Generic Name Dose Route Start Last Admin Trade Name Freq PRN Reason Stop Dose Admin Potassium Chloride 10 meq in 100 mls @ 100 mls/hr 07/01/23 21:15 07/01/23 23:50 Potassium Chloride/H20 IV 07/02/23 01:14 100 mls/hr Q1H ELDON Administration Discontinued Medications Generic Name Dose Route Start Last Admin Trade Name Freq PRN Reason Stop Dose Admin Al Hydroxide/Mg Hydroxide 30 ml 07/01/23 22:54 07/01/23 22:59 Magnesium Hydrox/Alum Hydrox 30 Ml Oral.Susp PO 07/01/23 22:55 30 ml ONCE ONE Administration Diphenhydramine HCl 25 mg 07/01/23 21:30 07/01/23 21:40 Diphenhydramine Hcl 50 Mg/Ml Vial IVPUSH 07/01/23 21:31 25 mg ONCE ONE Administration Famotidine 20 mg 07/01/23 21:30 07/01/23 21:40 Famotidine/Pf 20 Mg/2 Ml Vial IVPUSH 07/01/23 21:31 20 mg ONCE ONE Administration Sodium Chloride 1,000 mls @ 999 mls/hr 07/01/23 21:15 07/01/23 23:48 Ns IV 07/01/23 22:15 Infused .Q1H1M ELDON Infusion Lidocaine HCl 10 ml 07/01/23 22:54 07/01/23 22:59 Lidocaine Hcl Viscous 2 % 15 Ml Solution MUCOUS MEM 07/01/23 22:55 10 ml ONCE ONE Administration Sucralfate 1 gm 07/01/23 22:54 07/01/23 22:59 Sucralfate Oral Suspension 1 Gm/10 Ml Oral.Susp PO 07/01/23 22:55 1 gm ONCE ONE Administration Medical Decision Making Medical Decision Making MDM Narrative: 47-year-old male with history and clinical presentation, DDX: Hyperemesis cannabis, less likely felt to be food poisoning or gastroenteritis. INTERVENTION: IV fluids, anti medics, potassium replacement I reviewed all investigations and hematologic indices are consistent with a stress leukocytosis and likely combined with hypovolemia with subsequent hemoconcentration as there is an elevation of hemoglobin concentration, no thrombocytopenia and no left shift. Chemistry indices are significantly deranged with sodium/chloride significant for severe dehydration, patient is noted to be hypokalemic with magnesium slightly elevated. Patient also has an SANAZ likely secondary to rhabdomyolysis and severe dehydration. Elevated T bili again likely secondary to severe dehydration/hypovolemia and stress of nausea and vomiting. Urinalysis negative for UTI or hematuria. Viral testing negative for COVID-19/influenza. I have no concern for infection, patient is afebrile and all findings are consistent with underlying nausea/vomiting with electrolytes derangements in the presence of SANAZ and rhabdomy lysis. 0013: I discussed case with inpatient hospitalist who accepts admission. Differential Diagnosis Differential Diagnoses: The differential diagnosis associated with the presentation includes Please see the discussion above Admission/Observation Consideration of admission/observation: Escalation of care including admission/observation considered Please see the discussion above Consult Healthcare Provider Management of the patient was discussed with: Hospitalist Please see the discussion above Lab Data [facility] Lab Attestation statement: I reviewed the patient's lab results. Please see the discussion above 07/01/23 19:53 07/01/23 19:53 Labs: Lab Results 07/01/23 07/01/23 Range/Units 19:53 22:24 WBC 18.2 H (4.8-10.8) X10*3/uL RBC 5.81 H (4.60-5.80) X10*6/uL Hgb 18.7 H (14.0-18.0) g/dl Hct 50.4 (42.0-52.0) % MCV 86.7 (80.0-98.0) fL MCH 32.2 (27.0-33.0) pg MCHC 37.1 H (31.0-36.0) g/dl RDW 11.5 (11.0-16.0) % Plt Count 318 (160-400) X10*3/uL MPV 10.9 (9.4-12.4) fL Immature Gran % (Auto) 0.5 H (0.0-0.4) % Neut % (Auto) 69.9 (45-73) % Lymph % (Auto) 16.9 L (20-40) % [place] % (Auto) 12.4 H (2-11) % Eos % (Auto) 0.1 (0-4) % Baso % (Auto) 0.2 (0-2) % Lymph # (Auto) 3.1 (1.2-4.9) X10*3/uL [place] # (Auto) 2.3 H (0.1-1.2) X10*3/uL Eos # (Auto) 0.0 (0.0-0.4) X10*3/uL Baso # (Auto) 0.0 (0.0-0.2) X10*3/uL Abs Immat Gran (auto) 0.09 H (0.00-0.03) X10*3/uL Absolute Neuts (auto) 12.7 H (2.0-8.3) x10*3/uL Absolute Nucleated RBC 0.000 (0.0-0.012) X10*3/uL Nucleated RBC % (auto) 0.0 (0.0-0.2) /100WBC Smear Tech's Comments VERIFIED Sodium 125 L (135-145) mmol/L Potassium 2.8 L (3.3-5.1) mmol/L Chloride 71 L D (96-108) mmol/L Carbon Dioxide 33 H (22-29) mmol/L Anion Gap 24 H (12-20) BUN 81 H (9-16) mg/dL Creatinine 1.86 H (0.5-1.4) mg/dL Estim Creat Clear Calc 54.4 Estimated GFR 39 Random Glucose 149 H (60-115) mg/dL Calcium 10.2 D (8.4-10.2) mg/dL Magnesium 3.2 H (1.6-2.6) mg/dL Total Bilirubin 2.0 H (0.0-1.0) mg/dL AST 35 (5-37) U/L ALT 20 (0-40) U/L Alkaline Phosphatase 87 (39-117) U/L Total Creatine Kinase 1189 H (38-174) U/L Troponin I High Sens 10.8 (<3.5-35.0) ng/L Total Protein 9.2 H (6.5-8.0) g/dL Albumin 5.2 H (3.5-5.0) g/dL Urine Color Dark Yellow Urine Appearance Cloudy Urine pH 5.5 (5.0-9.0) Ur Specific [place] 1.020 (1.005-1.025) Urine Protein 100 (2+) H (Neg-Trace) mg/dL Urine Glucose (UA) Negative (Negative) mg/dL Urine Ketones 15 (Negative) mg/dL Urine Blood Moderate (2+) H (Negative) Urine Nitrite Negative (Negative) Ur Leukocyte Esterase Negative (Negative) Urine RBC 0-2 (0-2) /HPF Urine WBC 0-5 (0-5) /HPF Ur Squamous Epith Cells 6-10 (0-2) /HPF Urine Bacteria None Seen (None Seen) Hyaline Casts >20 (0-2) /LPF COVID-19 (BERTRAM) Negative (Negative) COVID-19 Clin Com See Note Influenza Type A (SIDNEY) Negative (Negative) Influenza Type B (SIDNEY) Negative (Negative) Influenza A & B Note See Note Independent Interpretation I performed an independent interpretation of an: EKG Interpretation: Sinus tachycardia, HR-123, no STEMI, HI/QRS are within normal limits, QTC is prolonged. External Record Review External record reviewed: Outpatient record, Prior outpatient labs and Prior outpatient radiology Critical Care Time Critical Care Time Critical Care Time: Yes Total Critical Care Time: 45 Attestation: I personally attest to this time spent taking care of the patient. Discharge Plan Discharge Clinical Impression: Cannabis hyperemesis syndrome concurrent with and due to cannabis abuse, Dehydration, SANAZ (acute kidney injury), Hypokalemia Patient Disposition: Admitted As Inpatient
--- NOTE | 2023-07-01 19:27 | ECG_ITS ---
Test Reason : CHEST PAIN Blood Pressure : / mmHG Vent. Rate : 123 BPM Atrial Rate : 123 BPM P-R Int : 118 ms QRS Dur : 094 ms QT Int : 354 ms P-R-T Axes : 077 060 -37 degrees QTc Int : 506 ms Sinus tachycardia Right atrial enlargement Left ventricular hypertrophy with repolarization abnormality ( Sokolow-Queen ) Abnormal ECG When compared with ECG of 04-SEP-2015 10:20, No significant change was found Referred By: Radha Meza Electronically Signed By:BABAR BURK MD
[2023-07-01 20:02] LABS: Basophils Percent Auto 0.2 % (0-2); Eosinophils Percent Auto 0.1 % (0-4); Hematocrit 50.4 % (42.0-52.0); Hemoglobin 18.7 g/dl (14.0-18.0); Imm Gran Abs Auto 0.09 X10*3/uL (0.00-0.03); Imm Gran Pct Auto 0.5 % (0.0-0.4); Lymphocytes Absolute Auto 3.1 X10*3/uL (1.2-4.9); Lymphocytes Percent Auto 16.9 % (20-40); MANUAL DIFF FLAG SCAN; Mean Corpuscular HGB Conc 37.1 g/dl (31.0-36.0); Mean Corpuscular Hemoglobin 32.2 pg (27.0-33.0); Mean Corpuscular Volume 86.7 fL (80.0-98.0); Mean Platelet Volume 10.9 fL (9.4-12.4); Monocytes Absolute Auto 2.3 X10*3/uL (0.1-1.2); Monocytes Percent Auto 12.4 % (2-11); Neutrophils Absolute Auto 12.7 x10*3/uL (2.0-8.3); Neutrophils Percent Auto 69.9 % (45-73); Platelet Count 318 X10*3/uL (160-400); Red Blood Count 5.81 X10*6/uL (4.60-5.80); Red Cell Distribution Width 11.5 % (11.0-16.0); SCAN SMEAR FLAG 1; White Blood Count 18.2 X10*3/uL (4.8-10.8)
[2023-07-01 20:20] LABS: Alanine Aminotransferase 20 U/L (0-40); Albumin Level 5.2 g/dL (3.5-5.0); Alkaline Phosphatase 87 U/L (39-117); Anion Gap 24 (12-20); Aspartate Amino Transferase 35 U/L (5-37); Blood Urea Nitrogen 81 mg/dL (9-16); Calcium 10.2 mg/dL (8.4-10.2); Carbon Dioxide 33 mmol/L (22-29); Chloride 71 mmol/L (96-108); Creatinine Clr Calc Pharmacy 54.4; Estimated Glomerular Filt Rate 39; Glucose Random 149 mg/dL (60-115); Magnesium 3.2 mg/dL (1.6-2.6); Potassium 2.8 mmol/L (3.3-5.1); Sodium 125 mmol/L (135-145); Total Protein 9.2 g/dL (6.5-8.0)
[2023-07-01 20:23] LABS: SLIDE REVIEW VERIFIED
[2023-07-01 20:30] LABS: COVID-19 Test Negative (Negative); IDNOW Serial# 9DB6401D; IDNOW Serial# BCCEAD1C; Influenza A Negative (Negative); Influenza B2 Negative (Negative)
[2023-07-01 20:44] LABS: Troponin-I High Sensitivity 10.8 ng/L (<3.5-35.0)
[2023-07-01] MEDS: 0.9 % Sodium Chloride 1,000 ML 999 ML IV (21:33)
[2023-07-01 21:34] VITALS: PULSE 117; RESP 19; O2SAT 100
[2023-07-01 21:39] VITALS: BP 107/64
[2023-07-01] MEDS: Potassium Chloride/H20 10 MEQ/100 ML PIGGYBACK 100 MEQ IV ×2 (21:40→23:50)
[2023-07-01] MEDS: Famotidine/PF 20 MG/2 ML VIAL IVPUSH (21:40)
[2023-07-01] MEDS: diphenhydrAMINE HCL 50 MG/ML VIAL 25 MG IVPUSH (21:40)
[2023-07-01 22:35] LABS: Appearance Urine Cloudy; Color Urine Dark Yellow; Glucose Urine UA Negative (Negative); Leukocyte Esterase Urine Negative (Negative); Nitrite Urine Negative (Negative); PH 5.5 (5.0-9.0); UMIC TRIGGER UACC YES; Urine Blood Moderate (2+) (Negative); Urine Ketones 15 mg/dL (Negative); Urine Protein 100 (2+) mg/dL (Neg-Trace)
[2023-07-01 22:42] LABS: Bacteria Urine None Seen (None Seen); Hyaline Casts Urine >20 /LPF (0-2); RBC Urine 0-2 /HPF (0-2); WBC Urine 0-5 /HPF (0-5)
[2023-07-01] MEDS: Sucralfate Oral Suspension 1 GM/10 ML ORAL.SUSP PO (22:59)
[2023-07-01] MEDS: Lidocaine HCl Viscous 2 % 15 ML SOLUTION 10 ML MUCOUS MEM (22:59)
[2023-07-01] MEDS: Magnesium Hydrox/Alum Hydrox 30 ML ORAL.SUSP PO (22:59)
--- NOTE | 2023-07-01 23:17 | PC.NURSE ---
potassium admin delay d/t pump issue, 1st bag potassium still running
[2023-07-02] MEDS: 0.9 % Sodium Chloride 1,000 ML 999 ML IV (00:49)
[2023-07-02] MEDS: Potassium Chloride/H20 10 MEQ/100 ML PIGGYBACK 100 MEQ IV ×2 (00:49→03:17)
[2023-07-02 00:58] LABS: Procalcitonin 0.21 ng/mL
[2023-07-02 01:05] LABS: Amphetamine Screen Urine Not Detected (Not Detect); Barbiturates, Urine Not Detected (Not Detect); Benzodiazepines Screen Urine Not Detected (Not Detect); Cannabinoid Screen Urine POSITIVE (Not Detect); Cocaine Screen Urine Not Detected (Not Detect); Fentanyl, urine Not Detected (Not Detect); Opiate Screen Urine Not Detected (Not Detect); Phencyclidine Screen Urine Not Detected (Not Detect)
--- NOTE | 2023-07-02 01:29 | P.HPHOSP_ITS ---
History of Present Illness Date of Service: 07/02/23 Chief Complaint: lethargy, vomiting 47M PMH cannibas hyperemesis, insomnia, complaining of 1 week nausea and vomiting, inabilityu to tolerate po. epigastric discomfort, muscle cramping, denies diarrhea, fever, chills. has had multiple similar episdoes complicated by severe SANAZ. in ED noted to have na -125, k -2.8, chloride - 71, cr 1.86. Review of Systems 2 Review of Systems: Yes all other systems are reviewed and are negative [facility] Medical History Cannabis abuse Nausea & vomiting No active medical problems Social History Household Members: Family Alcohol intake: never Patient Tobacco Use Status: Former Tobacco user Tobacco use type: Cigarette Smoked in Last 30 Days: No Use of substances other than those prescribed or required for medical reasons: Yes Substance Use Type: Marijuana Substance Use Frequency: Daily Advance Directives: No Advance Directives Information Provided: No Current occupational status: unemployed Meds Allergies Allergy/AdvReac Type Severity Reaction Status Date / Time No Known Allergies Allergy Verified 12/26/20 07:49 Active Medications: Current Medications Capsaicin (Capsaicin 0.025% Cream 60 Gm Tube) 1 appl TOPICAL TID PRN; Protocol PRN Reason: Nausea and Vomiting Hydromorphone HCl (Hydromorphone Hcl 0.5 Mg/0.5 Ml Syringe) 0.5 mg IVPUSH Q4H PRN; Protocol PRN Reason: mod pain Sodium Chloride (Ns) 1,000 mls @ 125 mls/hr IVCONT .Q8H ELDON Ondansetron HCl (Ondansetron Hcl 4 Mg/2 Ml Vial) 4 mg IVPUSH Q6H PRN PRN Reason: Nausea Tizanidine HCl (Tizanidine Hcl 4 Mg Tablet) 1 mg PO TID ELDON Zolpidem Tartrate (Zolpidem Tartrate 5 Mg Tablet) 10 mg PO BEDTIME [facility] Home Medications Medication Instructions Recorded Confirmed Last Taken Type tizanidine 4 mg tablet 1 mg PO TID 07/02/23 07/02/23 Unknown History zolpidem 10 mg tablet 10 mg PO BEDTIME 07/02/23 07/02/23 Unknown History Physical Exam 2 Vital Signs and Narrative: Vital Signs: Last Vital Signs Temp 98.4 F 07/01/23 19:23 Pulse 117 H 07/01/23 21:34 Resp 19 07/01/23 21:34 BP 107/64 07/01/23 21:39 Pulse Ox 100 07/01/23 21:34 O2 Del Method Room Air 07/01/23 19:23 BMI result Body Mass Index 27.8 General: AO X 3, no acute distress Resp: CTA bilateral, no accessory muscles used CVS: S1,S2,RRR GI: soft, non tender, non distended Neuro: motor grossly intact, alert Psych: appropriate affect, appropriate insight Results Labs 07/01/23 19:53 07/01/23 19:53 Labs: Laboratory Results - last 24 hr 07/01/23 07/01/23 07/02/23 19:53 22:24 00:49 MCV 86.7 MCH 32.2 MCHC 37.1 H RDW 11.5 Plt Count 318 MPV 10.9 Immature Gran % (Auto) 0.5 H Neut % (Auto) 69.9 Lymph % (Auto) 16.9 L [place] % (Auto) 12.4 H Eos % (Auto) 0.1 Baso % (Auto) 0.2 Lymph # (Auto) 3.1 [place] # (Auto) 2.3 H Eos # (Auto) 0.0 Baso # (Auto) 0.0 Abs Immat Gran (auto) 0.09 H Absolute Neuts (auto) 12.7 H Absolute Nucleated RBC 0.000 Nucleated RBC % (auto) 0.0 Smear Tech's Comments VERIFIED Anion Gap 24 H Estim Creat Clear Calc 54.4 Estimated GFR 39 Random Glucose 149 H Calcium 10.2 D Magnesium 3.2 H Total Bilirubin 2.0 H AST 35 ALT 20 Alkaline Phosphatase 87 Total Creatine Kinase 1189 H Total Protein 9.2 H Albumin 5.2 H Procalcitonin 0.21 Urine Color Dark Yellow Urine Appearance Cloudy Urine pH 5.5 Ur Specific [place] 1.020 Urine Protein 100 (2+) H Urine Glucose (UA) Negative Urine Ketones 15 Urine Blood Moderate (2+) H Urine Nitrite Negative Ur Leukocyte Esterase Negative Urine RBC 0-2 Urine WBC 0-5 Ur Squamous Epith Cells 6-10 Urine Bacteria None Seen Hyaline Casts >20 Urine Opiates Screen Not Detected Urine Fentanyl Screen Not Detected Ur Barbiturates Screen Not Detected Ur Phencyclidine Scrn Not Detected Ur Amphetamines Screen Not Detected U Benzodiazepines Scrn Not Detected Urine Cocaine Screen Not Detected U Marijuana (THC) Screen POSITIVE H COVID-19 (BERTRAM) Negative COVID-19 Clin Com See Note Influenza Type A (SIDNEY) Negative Influenza Type B (SIDNEY) Negative Influenza A & B Note See Note Assessment and Plan (1) SANAZ (acute kidney injury): Status: Acute Plan 47M PMH cannibas hyperemesis, insomnia, complaining of 1 week nausea and vomiting cannibas hyperemesis complicated by sanaz, mild rhabdo, severe dehydation, hyponatremia, hypokalemia antiemetics, IV NS, diet as tolerated, topical capsaicin. monitor bmp, cpk insomnia ambien at night dvt prophylaxis - lovenox given degree of dehydration and ongoing nausea and vomiting, likely to require atleast 2 midnights of aggressive hydration inpatient. Quality Stroke Does the patient have a stroke diagnosis?: No VTE Prior VTE?: No VTE Risk Level:: Medical - moderate - high VTE Device Contraindication: Treatment Not Indicated VTE Drug Contraindication: N/A - Med Ordered
[2023-07-02 01:46] VITALS: BP 143/83; PULSE 96; RESP 15; O2SAT 100
[2023-07-02] MEDS: ondansetron HCL 4 MG/2 ML VIAL IVPUSH (02:12)
[2023-07-02] MEDS: HYDROmorphone HCl 0.5 MG/0.5 ML SYRINGE IVPUSH ×5 (02:12→20:48)
[2023-07-02] MEDS: Enoxaparin Sodium 40 MG/0.4 ML SYRINGE SUBCUT ×2 (02:15→20:44)
[2023-07-02] MEDS: 0.9 % Sodium Chloride 1,000 ML 125 ML IVCONT ×4 (03:18→22:39)
[2023-07-02] MEDS: Pantoprazole Sodium 40 MG/10 ML VIAL IVPUSH (06:19)
[2023-07-02 08:00] VITALS: BP 119/64; PULSE 74; RESP 18; TEMP 36.4; O2SAT 96
[2023-07-02] MEDS: TiZANidine HCL 4 MG TABLET 1 MG PO ×3 (08:34→20:41)
[2023-07-02 10:19] LABS: Hematocrit 43.9 % (42.0-52.0); Hemoglobin 15.5 g/dl (14.0-18.0); Mean Corpuscular HGB Conc 35.3 g/dl (31.0-36.0); Mean Corpuscular Hemoglobin 32.2 pg (27.0-33.0); Mean Corpuscular Volume 91.1 fL (80.0-98.0); Platelet Count 270 X10*3/uL (160-400); Red Blood Count 4.82 X10*6/uL (4.60-5.80); Red Cell Distribution Width 11.5 % (11.0-16.0); White Blood Count 16.6 X10*3/uL (4.8-10.8)
--- NOTE | 2023-07-02 10:29 | PM.EVENT ---
Event Note Date of Service: 07/02/23 Event Note: Pt seen/examined, labs, meds reviewed. Admitted this morning with hyperemeisis d/t canabis complicated by SANAZ, high CPK, hypokalemia. His symptoms are much better, tolerating regular diet. Repeating labs and if they are trending favorably will diacharge home. Advise to refrain from canabis. O/w A/P per H and P from this morning. Time Spent With Patient Time: Total time managing care of this patient today ____ minutes.
--- NOTE | 2023-07-02 10:48 | PHA.MEDREC ---
Pharmacy Consult ? Medication Reconciliation Pharmacy has completed the medication reconciliation.
[2023-07-02 10:50] LABS: Alanine Aminotransferase 15 U/L (0-40); Albumin Level 4.1 g/dL (3.5-5.0); Alkaline Phosphatase 68 U/L (39-117); Anion Gap 16 (12-20); Aspartate Amino Transferase 29 U/L (5-37); Bilirubin Direct 0.4 mg/dL (0.0-0.5); Bilirubin Total 1.7 mg/dL (0.0-1.0); Blood Urea Nitrogen 48 mg/dL (9-16); Calcium 8.7 mg/dL (8.4-10.2); Carbon Dioxide 33 mmol/L (22-29); Chloride 86 mmol/L (96-108); Creatinine Clr Calc Pharmacy 79.1; Estimated Glomerular Filt Rate > 60; Glucose Random 128 mg/dL (60-115); Potassium 2.9 mmol/L (3.3-5.1); Sodium 132 mmol/L (135-145); Total Protein 7.1 g/dL (6.5-8.0)
[2023-07-02] MEDS: polyethylene glycoL 3350 17 GM POWD.PACK PO (11:13)
[2023-07-02] MEDS: Potassium Chloride Packet 20 MEQ PACKET 40 MEQ PO (11:21)
[2023-07-02 11:36] LABS: Magnesium 3.1 mg/dL (1.6-2.6)
--- NOTE | 2023-07-02 14:12 | MHC.CLN ---
NUTRITION CONSULT FOR NAUSEA AND VOMITING X ONE WEEK. PATIENT WITH DX CANNABIS HYPEREMESIS SYNDROME DUE TO CANNABIS ABUSE. PER MD NOTE, TOLERATING CURRENT DIET. ANTICIPATE SYMPTOMS TO RESOLVE DURING ADMISSION. NO ADDITIONAL NUTRITION INTERVENTIONS AT THIS TIME.
--- NOTE | 2023-07-02 14:58 | MHC.CM.PN ---
pt lives with mother will not need services when dcd has own ride home
[2023-07-02 15:59] LABS: Estimated Average Glucose 114 mg/dL; Hemoglobin A1c % 5.6 % (<6.0)
[2023-07-02 16:00] VITALS: BP 129/65; PULSE 84; RESP 19; TEMP 36.8; O2SAT 96
[2023-07-02 19:27] VITALS: BP 157/73; PULSE 80; RESP 16; TEMP 36.2; O2SAT 98
[2023-07-02] MEDS: Zolpidem Tartrate 5 MG TABLET 10 MG PO (20:41)
[2023-07-03] MEDS: HYDROmorphone HCl 0.5 MG/0.5 ML SYRINGE IVPUSH ×4 (01:03→12:59)
[2023-07-03 03:33] VITALS: BP 128/74; PULSE 75; RESP 16; TEMP 35.9; O2SAT 98
[2023-07-03] MEDS: Pantoprazole Sodium 40 MG/10 ML VIAL IVPUSH (05:56)
[2023-07-03] MEDS: 0.9 % Sodium Chloride 1,000 ML 125 ML IVCONT (06:00)
[2023-07-03 07:53] VITALS: BP 145/70; PULSE 74; RESP 20; TEMP 36.2; O2SAT 98
[2023-07-03 08:32] LABS: Hematocrit 40.4 % (42.0-52.0); Hemoglobin 13.9 g/dl (14.0-18.0); Mean Corpuscular HGB Conc 34.4 g/dl (31.0-36.0); Mean Corpuscular Hemoglobin 32.4 pg (27.0-33.0); Mean Corpuscular Volume 94.2 fL (80.0-98.0); Platelet Count 231 X10*3/uL (160-400); Red Blood Count 4.29 X10*6/uL (4.60-5.80); Red Cell Distribution Width 11.9 % (11.0-16.0); White Blood Count 12.7 X10*3/uL (4.8-10.8)
[2023-07-03 08:58] LABS: Anion Gap 12 (12-20); Blood Urea Nitrogen 26 mg/dL (9-16); Calcium 8.4 mg/dL (8.4-10.2); Carbon Dioxide 33 mmol/L (22-29); Chloride 96 mmol/L (96-108); Creatinine Clr Calc Pharmacy 92.9; Estimated Glomerular Filt Rate > 60; Glucose Random 108 mg/dL (60-115); Potassium 3.6 mmol/L (3.3-5.1); Sodium 137 mmol/L (135-145)
[2023-07-03] MEDS: TiZANidine HCL 4 MG TABLET 1 MG PO (09:44)
[2023-07-03] MEDS: 0.9 % Sodium Chloride Flush 3 ML SYRINGE IVFLUSH (09:44)
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
--- NOTE | 2023-07-03 09:58 | MHC.CM.PN ---
PT WILL DC HOME TODAY WITH NO SERVICES VIA PRIVATE TRANSPORT
== END 2023-07-03 13:45 | disposition home or self-care (01) | DRG 249 ==
LOC: HO.ED 07-02 00:14 → HO.EDOVER 07-02 01:32 → HO.S3 07-02 06:20
PROVIDERS: Registered Nurse Emergency; Admitting Provider Internal Medicine; Emergency Provider Student in an Organized Health Care Education/Training Program; PCP Family Medicine; Visit Provider Internal Medicine
DX: R11.2 Nausea with vomiting, unspecified (principal); N17.9 Acute kidney failure, unspecified; E87.1 Hypo-osmolality and hyponatremia; E86.0 Dehydration; F12.10 Cannabis abuse, uncomplicated; M62.82 Rhabdomyolysis; E87.6 Hypokalemia; Z20.822 Contact with and (suspected) exposure to COVID-19; Z87.891 Personal history of nicotine dependence; Z79.899 Other long term (current) drug therapy
CPT/HCPCS: 36415; 80048; 80053; 80076; 80307; 81001; 82550; 83036; 83735; 84145; 84484; 85025; 85027; 87502; 87635; 93005; 99285; C9113; J1170; J1200; J1650; J2405; J3480

== ENCOUNTER → 2023-07-01 19:27 | Outpatient (BNV) | payer MEDICAID, SELFPAY | PROVIDERS: Admitting Provider Internal Medicine; Emergency Provider Student in an Organized Health Care Education/Training Program; PCP Family Medicine; Visit Provider Internal Medicine Cardiovascular Disease | DX: R00.0 Tachycardia, unspecified (principal); R94.31 Abnormal electrocardiogram [ECG] [EKG] | CPT/HCPCS: 93010 ==

== ENCOUNTER → 2023-07-02 01:28 | Outpatient (BNV) | payer MEDICAID, SELFPAY | PROVIDERS: Admitting Provider Internal Medicine; Emergency Provider Student in an Organized Health Care Education/Training Program; PCP Family Medicine; Visit Provider Internal Medicine | DX: N17.9 Acute kidney failure, unspecified (principal) | CPT/HCPCS: 99223; 99239; 99499 ==

== ENCOUNTER 2023-07-13 15:09 | Outpatient (REF) | payer MEDICAID, SELFPAY ==
[2023-07-13 18:09] LABS: MANUAL DIFF FLAG NO
[2023-07-13 18:18] LABS: Basophils Absolute Auto 0.1 X10*3/uL (0.0-0.2); Basophils Percent Auto 0.5 % (0-2); Eosinophils Absolute Auto 0.2 X10*3/uL (0.0-0.4); Eosinophils Percent Auto 1.5 % (0-4); Hematocrit 42.4 % (42.0-52.0); Hemoglobin 14.2 g/dl (14.0-18.0); Imm Gran Abs Auto 0.05 X10*3/uL (0.00-0.03); Imm Gran Pct Auto 0.4 % (0.0-0.4); Lymphocytes Absolute Auto 3.3 X10*3/uL (1.2-4.9); Mean Corpuscular HGB Conc 33.5 g/dl (31.0-36.0); Mean Corpuscular Hemoglobin 32.3 pg (27.0-33.0); Mean Corpuscular Volume 96.6 fL (80.0-98.0); Mean Platelet Volume 10.3 fL (9.4-12.4); Monocytes Absolute Auto 0.7 X10*3/uL (0.1-1.2); Neutrophils Absolute Auto 7.4 x10*3/uL (2.0-8.3); Neutrophils Percent Auto 63.6 % (45-73); Platelet Count 329 X10*3/uL (160-400); Red Blood Count 4.39 X10*6/uL (4.60-5.80); Red Cell Distribution Width 12.2 % (11.0-16.0); White Blood Count 11.7 X10*3/uL (4.8-10.8)
[2023-07-13 18:26] LABS: Alanine Aminotransferase 27 U/L (0-40); Albumin Level 4.3 g/dL (3.5-5.0); Alkaline Phosphatase 72 U/L (39-117); Anion Gap 13 (12-20); Aspartate Amino Transferase 18 U/L (5-37); Bilirubin Total 0.2 mg/dL (0.0-1.0); Blood Urea Nitrogen 15 mg/dL (9-16); Calcium 9.5 mg/dL (8.4-10.2); Carbon Dioxide 26 mmol/L (22-29); Chloride 103 mmol/L (96-108); Estimated Glomerular Filt Rate > 60; Glucose Random 96 mg/dL (60-115); Magnesium 2.3 mg/dL (1.6-2.6); Potassium 3.9 mmol/L (3.3-5.1); Sodium 138 mmol/L (135-145); Total Protein 7.4 g/dL (6.5-8.0)
== END 2023-07-13 15:10 | disposition home or self-care (01) ==
LOC: HO.CHCLDS 15:09
PROVIDERS: Visit Provider Internal Medicine
DX: E87.1 Hypo-osmolality and hyponatremia (principal); E87.6 Hypokalemia; F12.188 Cannabis abuse with other cannabis-induced disorder; N17.9 Acute kidney failure, unspecified; D72.828 Other elevated white blood cell count
CPT/HCPCS: 36415; 80053; 82550; 83735; 85025

== ENCOUNTER 2023-07-14 12:43 | Outpatient (REF) | payer MEDICAID, SELFPAY | END 2023-07-14 12:44 | disposition home or self-care (01) | LOC: HO.SH 12:43 | PROVIDERS: Visit Provider Family Medicine | DX: Z01.118 Encounter for examination of ears and hearing with other abnormal findings (principal); H90.3 Sensorineural hearing loss, bilateral; H93.13 Tinnitus, bilateral | CPT/HCPCS: 92557; 92567 ==

== ENCOUNTER 2025-02-09 11:29 | Outpatient (REF) | payer MEDICAID, SELFPAY ==
--- OUTSIDE RECORDS SUMMARY | 2025-02-09 11:59 | XMS_ITS | Encounter Summary ---
Author Organization [employer] Address [address] [facility] [address] [place] [address] Care Team Providers Care General Cleaner Name Role Phone Patricia Grace MD Primary Care Provider [phone] Encounter Details Date Type Department Care Team ([facility] st Contact Info) Description 07/14/2023 Orders Only [facility] CHC MED & PEDS [address], [place] [phone] Naun Barnes MD [address] [place] [address] Cannabis hyperemesis syndrome concurrent with and due to cannabis abuse (CMS/HCC) (Primary Dx) Social History Tobacco Use Types Packs/Day Years Used Date Smoking Tobacco: Never Passive Smoke Exposure: Never Smokeless Tobacco: Never Alcohol Use Standard Drinks/Week Comments Never 0 (1 standard drink = 0.6 oz pur e alcohol) Depression Answer Date Recorded Patient Health Questionnaire-9 Score 17 04/29/2023 Housing Stability Answer Date Recorded What is your housing situation today? I have mariia choudhury 05/27/[address] you li ve. Do you have problems with any of the following? None of the above 05/27/2023 Food Insecurity Answer Date Recorded Within the past 12 months, y ou worried that your food would run out before you got money to buy more: Never True 05/27/2023 Within the past 12 months,th e food you bought just didn't last and you didn't have enough money to get more: Never True Transportation Answer Date Recorded In the past 12 months, has l ack of transportation kept you from medical appts, meetings, work or from getting things needed for daily living? No 05/27/2023 Utilities Answer Date Recorded In the past 12 months, has t he electric, gas, oil or water company threatened to shut off services in your home? No 05/27/2023 Depression Answer Date Recorded Patient Health Questionnaire-2 Score 2 04/29/2023 Sex and Gender Information Value Date Recorded Sex Assigned at Male 06/01/2022 10:22 AM EDT Legal Sex Male 10:22 AM EDT Gender Identity Male 06/01/2022 10:22 AM EDT Sexual Orientation Don't know 06/01/2022 10 :22 AM EDT documented as of this encounter Plan of Treatment Not on file documented as of this encounter Visit Diagnoses Diagnosis Cannabis hyperemesis syndrome concurrent with and due to cannabis abuse (CMS/HCC)- Primary documented in this encounter Additional Health Concerns Assessment Noted Time PHQ-9 Depression Total Score: 17 023 2:49 PM EDT documented as of this encounter Care Teams General Cleaner Relationship Specialty Start Date End Date Patricia Grace MD [address] [place] [id number] PCP - General Family Medicine 02/24/22 documented as of this encounter
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
[2025-02-09 14:48] LABS: MANUAL DIFF FLAG NO
[2025-02-09 14:55] LABS: Hematocrit 39.4 % (42.0-52.0); Hemoglobin 13.3 g/dl (14.0-18.0); Imm Gran Abs Auto 0.06 X10*3/uL (0.00-0.03); Imm Gran Pct Auto 0.4 % (0.0-0.4); Lymphocytes Absolute Auto 3.8 X10*3/uL (1.2-4.9); Mean Corpuscular HGB Conc 33.8 g/dl (31.0-36.0); Mean Corpuscular Hemoglobin 32.1 pg (27.0-33.0); Mean Corpuscular Volume 95.2 fL (80.0-98.0); NRBC Abs Auto 0.000 X10*3/uL (0.0-0.012); NRBC Pct Auto 0.0 /100WBC (0.0-0.2); Platelet Count 251 X10*3/uL (160-400); Red Blood Count 4.14 X10*6/uL (4.60-5.80); White Blood Count 13.7 X10*3/uL (4.8-10.8)
[2025-02-09 15:37] LABS: Alanine Aminotransferase 32 U/L (0-40); Albumin Level 4.1 g/dL (3.5-5.0); Alkaline Phosphatase 74 U/L (39-117); Anion Gap 12 (12-20); Aspartate Amino Transferase 28 U/L (5-37); Blood Urea Nitrogen 12 mg/dL (9-16); Calcium 9.3 mg/dL (8.4-10.2); Carbon Dioxide 29 mmol/L (22-29); Chloride 104 mmol/L (96-108); Cholesterol 199 mg/dL (<200); Estimated Glomerular Filt Rate > 60; HDL Cholesterol 29 mg/dL (>40); Potassium 2.9 mmol/L (3.3-5.1); Sodium 142 mmol/L (135-145); Total Protein 6.7 g/dL (6.5-8.0); Triglycerides 206 mg/dL (<150)
[2025-02-10 09:06] LABS: HBS Num1 0.76 mIU/mL (0-7.99); HBsAGNum1 0.47 S/CO (0.00-0.99); HIV Num 1 0.05 S/CO (0.00-0.99); Hepatitis B Surface Antigen Negative (Negative); ~HepC Num1 0.10 S/CO (0.00-0.79); ~Hepatitis B Surface Antibody NONREACTIVE (Nonreactive); ~Hepatitis C Antibody Nonreactive (Nonreactive)
[2025-02-13 22:18] LABS: Beta-2 Glycoprotein I Ab IgG <2.0 U/mL (<20.0); Beta-2 Glycoprotein I Ab IgM 2.1 U/mL (<20.0); Beta-2 Glycoprotein I Ab, IgA <2.0 U/mL (<20.0); Phosphatidylserine PT IgM <9 U (<=30)
[2025-02-17 08:09] LABS: Anti Nuclear Antibody Screen NEGATIVE (NEGATIVE)
== END 2025-02-09 11:30 | disposition home or self-care (01) ==
LOC: HO.CHCLDS 11:29
PROVIDERS: Visit Provider Family Medicine
DX: E66.811 Obesity, class 1 (principal); Z68.32 Body mass index [BMI] 32.0-32.9, adult; Z13.9 Encounter for screening, unspecified; M25.50 Pain in unspecified joint
CPT/HCPCS: 36415; 80053; 80061; 82306; 83516; 84443; 85025; 85652; 86038; 86140; 86146; 86147; 86431; 86706; 86803; 87340; 87389

== ENCOUNTER 2025-02-19 13:11 | Outpatient (REF) | payer MEDICAID, SELFPAY ==
--- OUTSIDE RECORDS SUMMARY | 2025-02-19 13:55 | XMS_ITS | Clinical Summary ---
Author Organization [facility] Address [address] [facility] [address] [place] [address] Phone Care Team Providers Care Bun Machine Operator Name Role Phone Unavailable Primary Care Provider [...]
--- OUTSIDE RECORDS SUMMARY | 2025-02-19 13:55 | XMS_ITS | Referral Summary ---
Author Organization [facility] Address [address] [place] [address] Care Team Providers Care Account Representative Name Role Phone Patricia Grace Primary Care Provider [phone] Allergies No known active allergies Medications HYDROcodone-robi [...] Plan of Treatment Not on file Insurance [facility] Care Teams Account Representative Relationship Specialty Start Date End Date Patircia Grace [address] [place] [id number] PCP - General 03/02/22
[2025-02-19 14:37] LABS: Anion Gap 11 (12-20); Blood Urea Nitrogen 15 mg/dL (9-16); Calcium 8.9 mg/dL (8.4-10.2); Carbon Dioxide 28 mmol/L (22-29); Chloride 106 mmol/L (96-108); Estimated Glomerular Filt Rate > 60; Magnesium 2.1 mg/dL (1.6-2.6); Potassium 3.7 mmol/L (3.3-5.1); Sodium 141 mmol/L (135-145)
[2025-02-20 08:21] LABS: HBS Num1 0.99 mIU/mL (0-7.99); ~Hepatitis B Surface Antibody NONREACTIVE (Nonreactive)
== END 2025-02-19 13:12 | disposition home or self-care (01) ==
LOC: HO.CHCLDS 13:11
PROVIDERS: PCP Family Medicine; Visit Provider Family Medicine
DX: Z11.59 Encounter for screening for other viral diseases (principal); E87.6 Hypokalemia; M25.50 Pain in unspecified joint
CPT/HCPCS: 36415; 80048; 83735; 84100; 86706

== ENCOUNTER 2025-04-12 13:13 | Outpatient (AMB) | payer MEDICAID, SELFPAY ==
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
[2025-04-12 13:22] VITALS: BP 150/63; PULSE 89; RESP 20; O2SAT 99; BMI 26.2
--- OUTSIDE RECORDS SUMMARY | 2025-04-12 17:16 | XMS_ITS | Encounter Summary ---
Author Organization [employer] Address [address] [place] [address] 7 [place] [address] Care Team Providers Care Clinical Data Research Name Role Phone Patricia Grace MD Primary Care Provider [phone] Danyelle Arzola Unavailable Reason for Visit * Reason Onset Date Comments Med Refill 12/13/2023 Encounter Details Date Type Department Care Team ([facility] st Contact Info) Description 12/13/2023 Telephone [facility] MED & PEDS [address] [place] [address] Patricia Grace MD [address] [place], [place] [phone] Med Refill Social History Tobacco Use Types Packs/Day Years Used Date Smoking Tobacco: Never Passive Smoke Exposure: Never Smokeless Tobacco: Never Alcohol Use Standard Drinks/Week Comments Never 0 (1 standard drink = 0.6 oz pur e alcohol) Depression Answer Date Recorded Patient Health Questionnaire-9 Score 17 04/29/2023 Housing Stability Answer Date Recorded What is your housing situation today? I have mariia choudhury 10/07/[address] you li ve. Do you have problems with any of the following? None of the above 10/07/2023 Food Insecurity Answer Date Recorded Within the past 12 months, y ou worried that your food would run out before you got money to buy more: Never True 10/07/2023 Within the past 12 months,th e food you bought just didn't last and you didn't have enough money to get more: Never True 01/2024 Transportation Answer Date Recorded In the past 12 months, has l ack of transportation kept you from medical appts, meetings, work or from getting things needed for daily living? No 10/07/2023 Utilities Answer Date Recorded In the past 12 months, has t he electric, gas, oil or water company threatened to shut off services in your home? No 10/07/2023 Depression Answer Date Recorded Patient Health Questionnaire-2 Score 2 04/29/2023 Sex and Gender Information Value Date Recorded Sex Assigned at Male 06/01/2022 10:22 AM EDT Legal Sex Male 10:22 AM EDT Gender Identity Male 06/01/2022 10:22 AM EDT Sexual Orientation Don't know 06/01/2022 10 :22 AM EDT documented as of this encounter Miscellaneous Notes * Telephone Encounter - Jacinda Campos - 12/13/2023 10:09 AM EDT TC from pt requesting medication refill. Medications needing refill : tiZANidine (Zanaflex) 4 MG tablet To be sent to: [facility]/pharmacy #[id number] - [place], [place] - [address] [place] [address] AT [facility], [place] [address] documented in this encounter Plan of Treatment Upcoming Encounters Date Type Department Care Team ([facility] st Contact Info) Description 04/26/2025 11:15 AM EDT Office Visit [facility] CHC MED & PEDS [address] [place] [address] Patricia Grace MD [address] [place] [address] documented as of this encounter Visit Diagnoses Not on filedocumented in this encounter Additional Health Concerns Assessment Noted Time PHQ-9 Depression Total Score: 17 023 2:49 PM EDT documented as of this encounter Care Teams Clinical Data Research Relationship Specialty Start Date End Date Patricia Grace MD [address] [place] [address] PCP - General Family Medicine 02/24/22 Danyelle Arzola 02/14/25 documented as of this encounter
--- OUTSIDE RECORDS SUMMARY | 2025-04-12 17:16 | XMS_ITS | Encounter Summary ---
Author Organization [employer] Address [address] [facility] [address] [place] [address] Care Team Providers Care Bed Spring Maker Name Role Phone Patricia Grace MD Primary Care Provider [phone] Danyelle Arzola Reason for Visit * Reason Comments Care Coordination C3CM/CHW Danyelle hernandez, Sdoh f/u call_lvm Encounter Details Date Type Department Care Team (Latest Contact Info) Description 04/09/2025 Patient Outreach [facility] MEDICINE [address] [place] [address] Patricia Grace MD [address] [place] [address] Care Coordination (C3CM/CHW Rogelio Rossoh f/u call_lvm) Social History Tobacco Use Types Packs/Day Years Used Date Smoking Tobacco: Never Passive Smoke Exposure: Never Smokeless Tobacco: Never Alcohol Use Standard Drinks/Week Comments Never 0 (1 standard drink = 0.6 oz pur e alcohol) Depression Answer Date Recorded Patient Health Questionnaire-9 Score 5 02/09/2025 Patient Health Questionnaire-9 Score 5 02/09/2025 Last PHQ-9: Questionnaire Data Not on file 0 02/09/2025 Housing Stability Answer Date Recorded What is your housing situation today? I do not have housing (Staying with others, in a hotel, in a penitentiary, living outside on the street, on a beach, in a car, or in a park 02/01/[address] you li ve. Do you have problems with any of the following? None of the above 02/01/2025 Food Insecurity Answer Date Recorded Within the past 12 months, y ou worried that your food would run out before you got money to buy more: Sometimes True 2024 Within the past 12 months,th e food you bought just didn't last and you didn't have enough money to get more: Sometimes True 03/21/2025 Transportation Answer Date Recorded In the past 12 months, has l ack of transportation kept you from medical appts, meetings, work or from getting things needed for daily living? No 02/01/2025 Utilities Answer Date Recorded In the past 12 months, has t he electric, gas, oil or water company threatened to shut off services in your home? No 02/01/2025 Depression Answer Date Recorded Patient Health Questionnaire-2 Score 2 02/09/2025 Internet Access Answer Date Recorded Internet Access Q1 Yes 02/01/2025 Internet Access Q2 Not on file 02/01/2025 Sex and Gender Information Value Date Recorded Sex Assigned at Male 06/01/2022 10:22 AM EDT Legal Sex Male 10:22 AM EDT Gender Identity Male 06/01/2022 10:22 AM EDT Sexual Orientation Don't know 06/01/2022 10 :22 AM EDT documented as of this encounter Progress Notes * Danyelle Arzola - 04/09/2025 3:04 PM EDT CHW Danyelle Arzola placed outbound call to patient for follow up call on SDOH needs. No answer at this time. CHW LVM introducing herself from [facility] CM Department. Requested call back.CHW reinforced direct contact information or CM for any additional questions or concerns and extended clinic hours on Mondays and Wednesdays, and Walk-In Urgent Care Located in [facility]. Patient provided with after-hours line for [facility], , which offer night time triage service and option to transfer to correction warden provider if needed. CHW will attempt anotherfollow up call within 10 days. documented in this encounter Plan of Treatment Upcoming Encounters Date Type Department Care Team (Late st Contact Info) Description 04/26/2025 11:15 AM EDT Office Visit [facility] CHC MED & PEDS [address] [place] [address] Patricia Grace MD [address] [place] [address] documented as of this encounter Visit Diagnoses Not on filedocumented in this encounter Additional Health Concerns Assessment Noted Time PHQ-9 Depression Total Score: 5 02/10/20 10:34 AM EDT documented as of this encounter Care Teams Bed Spring Maker Relationship Specialty Start Date End Date Patricia Grace MD [address] [place] [address] PCP - General Family Medicine 02/24/22 Danyelle Arzola 02/14/25 documented as of this encounter
--- OUTSIDE RECORDS SUMMARY | 2025-04-12 17:16 | XMS_ITS | Clinical Summary ---
Author Organization [facility] Address [address] [facility] [address] [facility] [address] [place] [address] Phone Care Team Providers Care Rubber Thread Spooler Name Role Phone Unavailable Primary Care Provider [...]
--- OUTSIDE RECORDS SUMMARY | 2025-04-12 17:16 | XMS_ITS | Encounter Summary ---
Author Organization [employer] Address [address] [place] [address] Care Team Providers Care Supervisor Dehydrogenation Name Role Phone Patricia Grace MD Primary Care Provider [phone] Danyelle Arzola Unavailable Encounter Details Date Type Department Care Team (Late st Contact Info) Description 08/27/2022 [facility] Information Management [address] [place] [address] Patricia Grace MD [address] [place] [address] Social History Tobacco Use Types Packs/Day Years Used Date Smoking Tobacco: Never Assessed Sex and Gender Information Value Date Recorded Sex Assigned at Male 06/01/2022 10:22 AM EDT Legal Sex Male 10:22 AM EDT Gender Identity Male 06/01/2022 10:22 AM EDT Sexual Orientation Don't know 06/01/2022 10 :22 AM EDT documented as of this encounter Plan of Treatment Upcoming Encounters Date Type Department Care Team (Late st Contact Info) Description 04/26/2025 11:15 AM EDT Office Visit [facility] CHC MED & PEDS [address] [place], [place] [phone] Patricia Grace MD [address] [place] [address] documented as of this encounter Visit Diagnoses Not on filedocumented in this encounter Care Teams Supervisor Dehydrogenation Relationship Specialty Start Date End Date Patricia Grace MD [address] [place] [address] PCP - General Family Medicine 02/24/22 Danyelle Arzola 02/14/25 documented as of this encounter
--- OUTSIDE RECORDS SUMMARY | 2025-04-12 17:16 | XMS_ITS ---
Author Organization [employer] Address [address] [place] [address] [address] [place] [address] Care Team Providers Care Wastewater Treatment Plant Chemist Name Role Phone Patricia Grace MD Primary Care Provider [phone] Danyelle Arzola CHW Complex Status:Enrolled (Active) Start date:02/14/2025 Enrollment date:03/21/2025 Enrollment reason:Referred by provider Overview Referral from Clinician- Patient needs assistance with housing resources and applications. He's interested in getting a phone call providing more information about CM resources for his current needs. Case Team Name Relationship Phone Danyelle Arzola(Responsible Staff) [phone] Continued Care and Services Coordination
--- OUTSIDE RECORDS SUMMARY | 2025-04-12 17:16 | XMS_ITS | Encounter Summary ---
Author Organization [employer] Address [address] [place] [address] Care Team Providers Care Boatbuilder Apprentice Wood Name Role Phone Patricia Grace MD Primary Care Provider [phone] Danyelle Arzola Unavailable Reason for Visit * Reason Comments Med Refill Encounter Details Date Type Department Care Team ([facility] Contact Info) Description 02/18/2025 Refill [facility] CHC MED & PEDS [address] [place] [address] Patricia Grace MD [address] [place] [address] Social History Tobacco Use Types Packs/Day Years [...] with others, in a hotel, in a intermediate, living outside on the street, on a [...] got money to buy more: Never True 02/01/2025 Within the past 12 months,th e food you bought just didn't last and you didn't have enough money to get more: Never True 09/2024 Transportation Answer Date Recorded In the past [...] Description 04/26/2025 11:15 AM EDT Office Visit [facility] CHC MED & PEDS [address] [place] [address] Patricia Grace MD [address] [place] [address] documented as of this encounter Visit Diagnoses Not on filedocumented in this encounter Additional Health Concerns Assessment Noted Time PHQ-9 Depression Total Score: 5 02/10/20 10:34 AM EDT documented as of this encounter Care Teams Boatbuilder Apprentice Wood Relationship Specialty Start Date End Date Patricia Grace MD [address] [place] [address] PCP - General Family Medicine 02/24/22 Danyelle Arzola 02/14/25 documented as of this encounter
--- OUTSIDE RECORDS SUMMARY | 2025-04-12 17:16 | XMS_ITS | Encounter Summary ---
Author Organization [employer] Address [address] [place] [address] Care Team Providers Care Jewelry Drilling Machine Operator Name Role Phone Patricia Grace MD Primary Care Provider Danyelle Arzola Unavailable Encounter Details Date Type Department Care Team ([facility] Contact Info) Description 07/14/2023 Orders Only [facility] CHC MED & PEDS [address] [place], [place] [phone] Naun Barnes MD [address] [place] [address] Cannabis hyperemesis syndrome concurrent with and due [...] Description 04/26/2025 11:15 AM EDT Office Visit [facility] MED & PEDS [address] [place] [address] Patricia Grace MD [address] [place] [address] documented as of this encounter Visit Diagnoses Diagnosis Cannabis hyperemesis syndrome concurrent with and due to cannabis abuse (CMS/HCC)- Primary documented in this encounter Additional Health Concerns Assessment Noted Time PHQ-9 Depression Total Score: 17 023 2:49 PM EDT documented as of this encounter Care Teams Jewelry Drilling Machine Operator Relationship Specialty Start Date End Date Patricia Grace MD [address] [place] [id number] PCP - General Family Medicine 02/24/22 Danyelle Arzola 02/14/25 documented as of this encounter
--- OUTSIDE RECORDS SUMMARY | 2025-04-12 17:16 | XMS_ITS | Clinical Summary ---
Author Organization [facility] Address [address] [place] [address] Care Team Providers Care Automotive Worker Foreman Name Role Phone Patricia Grace Primary Care Provider [phone] Allergies No known active allergies Medications HYDROcodone-robi [...] Health Maintenance Due Date Last Done Comments Cologuard 1976 Colon Cancer Screening 1976 Colonoscopy 1976 FOBT / Fit Test 1976 HIV Screening 1976 Sigmoidoscopy 1976 Hepatitis B Vaccines (1 of 3 - 19+ 3-dose series) 1995 DTaP,Tdap,and Td Vaccines (1 - Tdap) 1998 Alcohol/Substance Use Screening 08/02/2024 COVID-19 Vaccine ( - 2023-2 5 season) 2025 Influenza Vaccine (#1) 2025 RSV Vaccine (60+ years old a nd patients) (1 - 1-dose 75+ series) 2051 Pneumococcal Vaccine: Pediat sandra (0-5 Years) and At-Risk Patients (6-50 Years) Aged Out No longer eligible b ased on patient's age to complete this topic Insurance [place] [facility] Care Teams Automotive Worker Foreman Relationship Specialty Start Date End Date Patricia Grace [address] [place] [id number] PCP - General 03/02/22
--- OUTSIDE RECORDS SUMMARY | 2025-04-12 17:16 | XMS_ITS | Encounter Summary ---
Author Organization [facility] Address [address] [place] [address] Care Team Providers Care Resistor Coater Name Role Phone Patricia Grace Primary Care Provider [phone] Encounter Details Date Type Department Care Team (Late st Contact Info) Description 07/02/2022 Telephone [facility] [address] [place] [address] Telephone Intake, Staff Social History Tobacco Use Types Packs/Day Years Used Date Smoking Tobacco: Former Cigarettes Sex and Gender Information Value Date Recorded Sex Assigned at Not on file Legal Sex Male 7:31 AM EDT Gender Identity Not on file Sexual Orientation Not on file documented as of this encounter Miscellaneous Notes * Telephone Encounter - Kanwal Boyle - 07/02/2022 12:21 PM EST Pt called looking to get a Release form sent over to his pcp for Physical therapy. He is also looking to get all of his records sent over to his pcp. Please call pt documented in this encounter Plan of Treatment Not on file documented as of this encounter Visit Diagnoses Not on filedocumented in this encounter Care Teams Resistor Coater Relationship Specialty Start Date End Date Patricia Grace [address] [place] [address] PCP - General 03/02/22 documented as of this encounter
--- OUTSIDE RECORDS SUMMARY | 2025-04-12 17:16 | XMS_ITS | Clinical Summary ---
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 02/09/2025 2:41 PM EDT Patricia Grace MD LAB BLOOD ORDERABLES Final Re sult Performing Organization Address [facility] Co de Phone Number [facility] [address] [place] [phone] * Sed Rate by Modified Dominicergren (02/09/2025 11:30 AM EDT) Erythrocyte Sedimentation Rate 13 0 - 15 MM/HR [facility] Comment:Patients with polycy themia and many hemoglobin abnormalitiesmay have depressed sed rates whereas patients with anemiamay have elevated sed rates. Blood Venous blood specimen / Unknown 02/09/2025 11:30 AM EDT 02/09/2025 2:41 PM EDT Patricia Grace MD LAB BLOOD ORDERABLES Final Re sult Performing Organization Address [facility] Co de Phone Number [facility] [address] [place] [phone] * Rheumatoid Factor (02/09/2025 11:30 AM EDT) Rheumatoid Factor <13.0 <15.0 IU/mL [facility] Blood Venous blood specimen / Unknown 02/09/2025 11:30 AM EDT 02/09/2025 2:41 PM EDT Patricia Grace MD LAB BLOOD ORDERABLES Final Re sult Performing Organization Address City/[facility]/ZIP Co de Phone Number [facility] [address] [place] [phone] * (ABNORMAL) C-reactive Protein (02/09/2025 11:30 AM EDT) Pathologist [facility] C Reactive Protein 1.14(H) < or = 0.50 mg/dL [facility] Blood Venous blood specimen / Unknown 02/09/2025 11:30 AM EDT 02/09/2025 2:41 PM EDT us Patricia Grace MD LAB BLOOD ORDERABLES Final Re sult Performing Organization Address [facility]/ZIP Co de Phone Number [facility] [address] [place] [phone] * AARTI Screen,IFA, with Reflex to Titer and Pattern (02/09/2025 11:30 AM EDT) Pathologist [facility] Anti Nuclear Antibody Screen NEGATIVE NEGATIVE [facility] Comment:AARTI IFA is a first l ine screen for detecting thepresence of up to approximately 150 autoantibodies invarious autoimmune diseases. A negative AARTI IFA resultsuggests an AARTI-associated autoimmune disease is notpresent at this time, but is not definitive. If thereis high clinical suspicion for Sjogren's syndrome,testing for anti-SS-A/Ro antibody should be considered.Anti-Angi-1 antibody should be considered for clinicallysuspected inflammatory myopathies.AC-0: NegativeInternational Consensus on AARTI Patterns(https://doi.org/10.1515/modp-3754-0186)For additional information, please refer tohttp://education.[employer]/faq/LSV588(This link is being provided for informational/educational purposes only.)THIS TEST WAS PERFORMED AT:[facility] [place] [id number] NICK MD AARTI Titer TNP [facility] AARTI Pattern TNP [facility] AARTI TITER 2 (REF LAB) TNP [facility] AARTI Pattern 2 TNP [facility] AARTI TITER 3 TNP [facility] AARTI PATTERN 3 [facility] Blood Venous blood specimen / Unknown 02/09/2025 11:30 AM EDT 02/09/2025 2:41 PM EDT us Patricia Grace MD LAB BLOOD ORDERABLES Final Re sult Performing Organization Address [facility] Co de Phone Number [facility] [address] [place] [phone] * (ABNORMAL) Lipid Panel, Standard (02/09/2025 11:30 AM EDT) Triglycerides 206(H) <150 mg/dL [facility] Comment:Desirable Triglyceri de: less than 150 mg/dLBorderline High Triglyceride 150-199 mg/dLHigh Triglyceride: 200-499 mg/dLVery High Triglyceride: greater than or equal to 5OO mg/dL Cholesterol 199 <200 mg/dL [facility] Comment:Desirable Cholestero l: less than 200 mg/dLBorderline High Cholesterol: 200-239 mg/dLHigh Cholesterol: greater than 239 mg/dL LDL Cholesterol Calculated 129(H) <100 mg/dL [facility] Comment:Desirable LDL: less than 100 mg/dLNear Optimal/Above Optimal LDL: 110- 129 mg/dLBorderline High LDL: 130-159 mg/dLHigh LDL: 160-189 mg/dLVery High LDL: greater than or equal to 190 mg/dL HDL Cholesterol 29(L) >40 mg/dL [facility] Comment:Desirable HDL: great er than 40 mg/dL Note: This HDL assay may give artificially low results in patients with liver disease. Blood Venous blood specimen / Unknown 02/09/2025 11:30 AM EDT 02/09/2025 2:41 PM EDT us Patricia Grace MD LAB BLOOD ORDERABLES Final Re sult Performing Organization Address [facility]/ZIP Co de Phone Number [facility] [address] [place] [phone] * (ABNORMAL) Comprehensive Metabolic Panel (02/09/2025 11:30 AM EDT) Sodium 142 135 - 145 mmol/L [facility] Potassium 2.9(LL) 3.3 - 5.1 mmol/L [facility] Comment:Critical value for t est(s): POTS Results called to and readback by: CHITRA Sim RN Person calling: [facility] Date: 02/09/25Time: 1537 Chloride 104 96 - 108 mmol/L [facility] Carbon Dioxide 29 22 - 29 mmol/L [facility] Anion Gap 12 12 - 20 [facility] Urea Nitrogen (BUN) 12 9 - 16 mg/dL [facility] Creatinine, Serum 1.14 0.5 - 1.4 mg/dL [facility] Estimated Glomerular Filt Rate >60 [facility] Comment:Chronic Kidney Disea se: Estimated GFR < 60 mL/min/1.21m1Kbxeri Kidney Disease: Estimated GFR < 15 mL/min/1.73m2 Glucose 124(H) 60 - 115 mg/dL [facility] Calcium 9.3 8.4 - 10.2 mg/dL [facility] Bilirubin, Total 0.3 0.0 - 1.0 mg/dL [facility] Aspartate Amino Transferase 28 5 - 37 U/L [facility] Alanine Aminotransferase 32 0 - 40 U/L [facility] Total Protein 6.7 6.5 - 8.0 g/dL [facility] Albumin Level 4.1 3.5 - 5.0 g/dL [facility] Alkaline Phosphatase 74 39 - 117 U/L [facility] Blood Venous blood specimen / Unknown 02/09/2025 11:30 AM EDT 02/09/2025 2:41 PM EDT us Patricia Grace MD LAB BLOOD ORDERABLES Final Re sult [facility] [address] [place] [phone] from Last 3 Months Insurance [facility] C3 Care Teams Ict Project Manager Relationship Specialty Start Date End Date Patricia Grace MD [address] [place] [address] PCP - General Family Medicine 02/24/22 Danyelle Arzola 02/14/25
== END 2025-04-12 13:49 | disposition home or self-care (01) ==
LOC: HO.PMC 13:14
PROVIDERS: PCP Family Medicine; Visit Provider Anesthesiology
DX: G89.4 Chronic pain syndrome (principal)
CPT/HCPCS: 99203

== ENCOUNTER → 2025-04-12 13:13 | Outpatient (BNVA) | payer MEDICAID, SELFPAY | PROVIDERS: PCP Family Medicine; Visit Provider Anesthesiology | DX: M79.661 Pain in right lower leg (principal); R07.9 Chest pain, unspecified; G89.4 Chronic pain syndrome | CPT/HCPCS: 99202 ==

== ENCOUNTER 2025-04-26 11:56 | Outpatient (REF) | payer MEDICAID, SELFPAY ==
--- OUTSIDE RECORDS SUMMARY | 2025-04-26 11:15 | XMS_ITS | Encounter Summary ---
Author Organization [employer] Address [address] [place] [address] [place] [address] Care Team Providers Care Rental Counter Clerk Name Role Phone Patricia Grace MD Primary Care Provider [phone] Danyelle Arzola Unavailable Encounter Details Date Type Department Care Team ([facility] st Contact Info) Description 04/26/2025 11:15 AM EDT Office Visit [facility] [address] [place] [address] Patricia Grace MD [address] [place] [address] Colon cancer screening (Primary Dx) Social History Tobacco Use Types [...] with others, in a hotel, in a residential, living outside on the street, on a [...] AM EDT documented as of this encounter Last Filed Vital Signs Vital Sign Reading Time Taken Comments Blood Pressure 138/80 04/26/2025 11:10 AM EDT Pulse 84 04/26/2025 11:10 AM EDT Temperature 36.7 C (98.1 F) 04/26/2025 11:10 AM EDT Respiratory Rate 20 04/26/2025 11:1 0 AM EDT Oxygen Saturation 99% 04/26/2025 11: 10 AM EDT Inhaled Oxygen Concentration - - Weight 87.5 kg (192 lb 12.8 oz) 025 11:10 AM EDT Height 180 cm (5' 10.87 ) 04/26/2025 11 :10 AM EDT Body Mass Index 26.99 04/26/2025 11:10 AM EDT documented in this encounter Plan of Treatment Upcoming Encounters Date Type Department Care Team (Late st Contact Info) Description 06/07/2025 1:30 PM EST Office Visit [facility] [address] [place] [address] Patricia Grace MD [address] [place] [address] documented as of this encounter Visit Diagnoses Diagnosis Colon cancer screening- Primary Special screening for malignant neoplasms, colon documented in this encounter Additional Health Concerns Assessment Noted Time PHQ-9 Depression Total Score: 5 02/10/20 25 10:34 AM EDT documented as of this encounter Care Teams Rental Counter Clerk Relationship Specialty Start Date End Date Patricia Grace MD [address] [place] [phone] PCP - General Family Medicine 02/24/22 Danyelle Arzola 02/14/25 documented as of this encounter
[2025-04-26 15:22] LABS: Anion Gap 9 (12-20); Blood Urea Nitrogen 15 mg/dL (9-16); Calcium 9.0 mg/dL (8.4-10.2); Carbon Dioxide 31 mmol/L (22-29); Chloride 105 mmol/L (96-108); Estimated Glomerular Filt Rate > 60; Magnesium 2.1 mg/dL (1.6-2.6); Potassium 3.8 mmol/L (3.3-5.1); Sodium 141 mmol/L (135-145)
[2025-04-26 15:32] LABS: Parathyroid Hormone Intact 47.8 pg/mL (8.7-77.1)
--- OUTSIDE RECORDS SUMMARY | 2025-04-26 17:00 | XMS_ITS | Encounter Summary ---
Author Organization [employer] Address [address] [place] [phone] Care Team Providers Care Brokerage Clerk Name Role Phone Patricia Grace MD Primary Care Provider [phone] Danyelle Arzola Unavailable Encounter Details Date Type Department Care Team (Late st Contact Info) Description 08/27/2022 [facility] Information Management [address] [place] [address] Patricia Grace MD [address] [place] [address] Social History Tobacco Use Types Packs/Day Years [...] Description 06/07/2025 1:30 PM EST Office Visit [facility] [address] [place], [place] [phone] Patricia Grace MD [address] [place] [address] documented as of this encounter Visit Diagnoses Not on filedocumented in this encounter Care Teams Brokerage Clerk Relationship Specialty Start Date End Date Patricia Grace MD [address] [place] [address] PCP - General Family Medicine 02/24/22 Danyelle Arzola 02/14/25 documented as of this encounter
--- OUTSIDE RECORDS SUMMARY | 2025-04-26 17:00 | XMS_ITS | Encounter Summary ---
Author Organization [employer] Address [address] [facility] [address] [place] [address] Care Team Providers Care Embedded Software Design Engineer Name Role Phone Patricia Grace MD Primary Care Provider [phone] Danyelle Arzola Unavailable Encounter Details Date Type Department Care Team ([facility] Contact Info) Description 07/14/2023 Orders Only [facility] [address] [place], [place] [phone] Naun Barnes MD [address] [place] [address] Cannabis hyperemesis syndrome concurrent with and due [...] Description 06/07/2025 1:30 PM EST Office Visit [facility] [address] [place] [address] Patricia Grace MD [address] [place] [address] documented as of this encounter Visit Diagnoses Diagnosis Cannabis hyperemesis syndrome concurrent with and due to cannabis abuse (CMS/HCC)- Primary documented in this encounter Additional Health Concerns Assessment Noted Time PHQ-9 Depression Total Score: 17 023 2:49 PM EDT documented as of this encounter Care Teams Embedded Software Design Engineer Relationship Specialty Start Date End Date Patricia Grace MD [address] [place] [phone] PCP - General Family Medicine 02/24/22 Danyelle Arzola 02/14/25 documented as of this encounter
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
--- OUTSIDE RECORDS SUMMARY | 2025-04-26 17:00 | XMS_ITS | Encounter Summary ---
Author Organization [employer] Address [address] [facility] 7 [place] [address] Care Team Providers Care Service Control Operator Name Role Phone Patricia Grace MD Primary Care Provider [phone] Danyelle Arzola Unavailable Encounter Details Date Type Department Care Team (Latest Contact Info) Description 04/26/2025 Travel Social History Tobacco Use Types Packs/Day Years [...] with others, in a hotel, in a halfway, living outside on the street, on a [...] Description 06/07/2025 1:30 PM EST Office Visit [facility] [address] [place] [address] Patricia Grace MD [address] [place] [address] documented as of this encounter Visit Diagnoses Not on filedocumented in this encounter Additional Health Concerns Assessment Noted Time PHQ-9 Depression Total Score: 5 02/10/20 25 10:34 AM EDT documented as of this encounter Care Teams Service Control Operator Relationship Specialty Start Date End Date Patricia Grace MD [address] [place] [address] PCP - General Family Medicine 02/24/22 Danyelle Arzola 02/14/25 documented as of this encounter
--- OUTSIDE RECORDS SUMMARY | 2025-04-26 17:00 | XMS_ITS ---
Author Organization [employer] Address [address] [place] [address] [place] [address] Care Team Providers Care Nuts And Bolts Assembler Name Role Phone Patricia Grace MD Primary Care Provider [phone] Danyelle Arzola CHW Complex Status:Enrolled (Active) Start date:02/14/2025 Enrollment date:03/21/2025 Enrollment reason:Referred by provider Overview Referral from Clinician- Patient needs assistance with housing resources and applications. He's interested in getting a phone call providing more information about CM resources for his current needs. Case Team Name Relationship Phone Danyelle Arzola(Responsible Staff) [phone] Continued Care and Services Coordination
--- OUTSIDE RECORDS SUMMARY | 2025-04-26 17:00 | XMS_ITS | Encounter Summary ---
Author Organization [facility] Address [address] [place] [address] Care Team Providers Care Counter Hand Name Role Phone Patricia Grace Primary Care Provider [phone] Encounter Details Date Type Department Care Team (Late st Contact Info) Description 07/02/2022 Telephone [facility] [address] [place] [address] Telephone Intake, Staff Social History Tobacco Use [...] on filedocumented in this encounter Care Teams Counter Hand Relationship Specialty Start Date End Date Patricia Grace [address] [place] [address] PCP - General 03/02/22 documented as of this encounter
--- OUTSIDE RECORDS SUMMARY | 2025-04-26 17:00 | XMS_ITS | Encounter Summary ---
Author Organization [employer] Address [address] [place] [address] [facility] [place] [address] Care Team Providers Care Plaster Whittler Name Role Phone Patricia Grace MD Primary Care Provider [phone] Danyelle Arzola Unavailable Reason for Visit * Reason Onset Date Comments Med Refill 12/13/2023 Encounter Details Date Type Department Care Team ([facility] st Contact Info) Description 12/13/2023 Telephone [facility] MED & PEDS [address] [place] [address] Patricia Grace MD [address] [place], [place] [id number] Med Refill Social History Tobacco Use Types [...] 4 MG tablet To be sent to: [facility]/pharmacy #[id number] - [place] - [address] [place] [address] AT [facility] [place] [address] documented in this encounter Plan of Treatment Upcoming Encounters Date Type Department Care Team ([facility] st Contact Info) Description 06/07/2025 1:30 PM EST Office Visit [facility] MED & PEDS [address] [place] [address] Patricia Grace MD [address] [place] [address] documented as of this encounter Visit Diagnoses Not on filedocumented in this encounter Additional Health Concerns Assessment Noted Time PHQ-9 Depression Total Score: 17 023 2:49 PM EDT documented as of this encounter Care Teams Plaster Whittler Relationship Specialty Start Date End Date Patricia Grace MD [address] [place] [address] PCP - General Family Medicine 02/24/22 Danyelle Arzola 02/14/25 documented as of this encounter
--- OUTSIDE RECORDS SUMMARY | 2025-04-26 17:00 | XMS_ITS | Clinical Summary ---
Author Organization [facility] Address [address] [place] [address] Care Team Providers Care Yeast Stacker Name Role Phone Patricia Grace Primary Care Provider [phone] Allergies No known active allergies Medications HYDROcodone-robi [...] to complete this topic Insurance [place] [facility] Care Teams Yeast Stacker Relationship Specialty Start Date End Date Patricia Grace [address] [place] [address] PCP - General 03/02/22
--- OUTSIDE RECORDS SUMMARY | 2025-04-26 17:00 | XMS_ITS | Encounter Summary ---
Author Organization [employer] Address [address] [place] [address] Care Team Providers Care Sewage Plant Supervisor Name Role Phone Patricia Grace MD Primary Care Provider [phone] Danyelle Arzola Unavailable Reason for Visit * Reason Onset Date Comments Chart Prep 04/25/2025 Encounter Details Date Type Department Care Team ([facility] st Contact Info) Description 04/25/2025 Telephone [facility] MED & PEDS [address] [place] [address] Patricia Grace MD [address] [place] [address] Chart Prep Social History Tobacco Use Types Packs/Day Years [...] with others, in a hotel, in a half-way, living outside on the street, on a [...] the past 12 months, has t he [employer], gas, oil or water company threatened to [...] encounter Miscellaneous Notes * Telephone Encounter - Dulce Maria Hancock [place] - 04/25/2025 3:14 PM EDT Chart Prep Labs: not done Images: not done Referrals: complete Vaccines due: due Screenings: colonoscopy Overdue care gaps: Not applicable documented in this encounter Plan of Treatment Upcoming Encounters Date Type Department Care Team (Late st Contact Info) Description 06/07/2025 1:30 PM EST Office Visit [facility] [address] [place] [address] Patricia Grace MD [address] [place] [address] documented as of this encounter Visit Diagnoses Not on filedocumented in this encounter Additional Health Concerns Assessment Noted Time PHQ-9 Depression Total Score: 5 02/10/20 25 10:34 AM EDT documented as of this encounter Care Teams Sewage Plant Supervisor Relationship Specialty Start Date End Date Patricia Grace MD [address] [place] [address] PCP - General Family Medicine 02/24/22 Danyelle Arzola 02/14/25 documented as of this encounter
--- OUTSIDE RECORDS SUMMARY | 2025-04-26 17:00 | XMS_ITS | Clinical Summary ---
Author Organization [facility] Address [address] [facility] [address] [place] [address] Phone Care Team Providers Care Yarn Washer Name Role Phone Unavailable Primary Care Provider [...]
--- OUTSIDE RECORDS SUMMARY | 2025-04-26 17:00 | XMS_ITS | Encounter Summary ---
Author Organization [employer] Address [address] [facility] [place] [address] Care Team Providers Care Condenser Cleaner Name Role Phone Patricia Grace MD Primary Care Provider [phone] Danyelle Arzola Reason for Visit * Reason Comments Care Coordination C3CM/CHW Danyelle Amado mary, Sdoh f/u_unable to lvm Encounter Details Date Type Department Care Team (Latest Contact Info) Description 04/26/2025 Patient Outreach [facility] [address] [place] [address] Patricia Grace MD [address] [place] [address] Care Coordination (C3CM/Rogelio Gallegosoh f/u_unable to lvm ) Social History Tobacco Use Types Packs/Day Years [...] with others, in a hotel, in a fdc, living outside on the street, on a [...] encounter Progress Notes * Danyelle Arzola - 04/26/2025 1:28 PM EDT CHW Danyelle Arzola placed outbound call to patient for follow up call on SDOH needs. No answer at this time. CHW unable to LVM, mailbox full. CHW will attempt another follow up call within 10 days. documented in this encounter Plan of Treatment Upcoming Encounters Date Type Department Care Team ([facility] st Contact Info) Description 06/07/2025 1:30 PM EST Office Visit [facility] MED & PEDS [address] [place] [address] Patricia Grace MD [address] [place] [address] documented as of this encounter Visit Diagnoses Not on filedocumented in this encounter Additional Health Concerns Assessment Noted Time PHQ-9 Depression Total Score: 5 02/10/20 25 10:34 AM EDT documented as of this encounter Care Teams Condenser Cleaner Relationship Specialty Start Date End Date Patricia Grace MD [address] [place] [address] PCP - General Family Medicine 02/24/22 Danyelle Arzola 02/14/25 documented as of this encounter
--- OUTSIDE RECORDS SUMMARY | 2025-04-26 17:01 | XMS_ITS | Encounter Summary ---
Author Organization [employer] Address [address] [place] [address] Care Team Providers Care Corporate Event Planner Name Role Phone Patricai Grace MD Primary Care Provider [phone] Danyelle Arzola Unavailable Reason for Visit * Reason Comments Med Refill Encounter Details Date Type Department Care Team ([facility] Contact Info) Description 02/18/2025 Refill [facility] MED & PEDS [address] [place] [address] Patricia Grace MD [address] [place] [address] Social History Tobacco Use Types Packs/Day Years [...] with others, in a hotel, in a correction, living outside on the street, on a [...] Description 06/07/2025 1:30 PM EST Office Visit [facility] MED & PEDS [address] [place] [address] Patricia Grace MD [address] [place] [address] documented as of this encounter Visit Diagnoses Not on filedocumented in this encounter Additional Health Concerns Assessment Noted Time PHQ-9 Depression Total Score: 5 02/10/20 10:34 AM EDT documented as of this encounter Care Teams Corporate Event Planner Relationship Specialty Start Date End Date Patricia Grace MD [address] [place] [address] PCP - General Family Medicine 02/24/22 Danyelle Arzola 02/14/25 documented as of this encounter
== END 2025-04-26 11:57 | disposition home or self-care (01) ==
LOC: HO.CHCLDS 11:56
PROVIDERS: PCP Family Medicine; Visit Provider Family Medicine
DX: E83.39 Other disorders of phosphorus metabolism (principal)
CPT/HCPCS: 36415; 80051; 82306; 82310; 82565; 83735; 83970; 84100; 84520